=== PATIENT | male | born 1965 | race American Indian/Alaskan Native ===

== ENCOUNTER 2021-10-13 00:21 | Inpatient (IN) | payer OTHER ==
[2021-10-13] MEDS ORDERED: MORPHINE 4 MG/1 ML INJ IV ONE (02:14)
[2021-10-13 03:07] LABS: Mean Corpuscular HGB Conc 36 % (32-34); Mean Corpuscular Volume 95 fl (84-94); Platelet Count 259 K/mm3 (140-440); Red Blood Count 1.32 M/mm3 (3.65-5.03)
[2021-10-13 03:16] LABS: Albumin 3.9 g/dL (3.9-5); Calcium 8.1 mg/dL (8.4-10.2); Red Cell Distribution Width 28.7 % (13.2-15.2)
[2021-10-13 03:17] LABS: Hematocrit 12.6 % (35.5-45.6); Hemoglobin 4.6 gm/dl (11.8-15.2); INR 1.22 (0.87-1.13)
[2021-10-13 03:18] LABS: Partial Thromboplastin Time 31.9 Sec. (24.2-36.6)
--- NOTE | 2021-10-13 03:29 | XRay Report ---
Chest single view INDICATION: Chest pain IMPRESSION: Severe cardiomegaly with increased pulmonary venous prominence and trace interstitial meagan ma. No large pleural effusion. Signer Name: Harris Brown MD Signed: 10/13/2021 3:25 AM Workstation Name: [facility]
--- NOTE | 2021-10-13 03:32 | XRay Report ---
Left hip 2 views INDICATION: Left hip pain IMPRESSION: Moderately displaced intertrochanteric fracture of the left hip. Signer Name: Harris Brown MD Signed: 10/13/2021 3:28 AM Workstation Name: [employer]
--- NOTE | 2021-10-13 03:52 | Emergency Department Report ---
ED Lower Extremity HPI - General Chief Complaint: Fall Stated Complaint: GLF LF HIP PAIN Time Seen by Provider: 10/13/21 02:13 Source: EMS Mode of arrival: Stretcher Limitations: Physical Limitation - History of Present Illness Initial Comments: Patient is a 56-year-old male presenting to ED via EMS for evaluation of left hip pain after ground-level fall at home while tripping on steps. EMS notes shortening of the left leg with external rotation. He denies any other injuries. Severity: severe Improves With: nothing Worsens With: movement Context: fall - Related Data Allergies Allergy/AdvReac Type Severity Reaction Status Date / Time No Known Allergies Allergy Verified 10/13/21 02:42 ED Review of Systems ROS: Stated complaint: GLF LF HIP PAIN Other details as noted in HPI Constitutional: denies: chills, fever ENT: denies: ear pain, throat pain Respiratory: denies: cough, shortness of breath, wheezing Cardiovascular: denies: chest pain, palpitations Endocrine: no symptoms reported Gastrointestinal: denies: abdominal pain, nausea, diarrhea Musculoskeletal: arthralgia Skin: denies: rash, lesions Neurological: denies: headache, weakness, paresthesias Psychiatric: denies: anxiety, depression ED Physical Exam - General Limitations: Physical Limitation General appearance: alert, in distress (Uncomfortable due to pain) - Head Head exam: Present: atraumatic, normocephalic - Eye Eye exam: Present: normal appearance, EOMI - Neck Neck exam: Present: normal inspection, full ROM. Absent: tenderness - Respiratory Respiratory exam: Present: normal lung sounds bilaterally. Absent: respiratory distress - Cardiovascular Cardiovascular Exam: Present: regular rate, normal rhythm. Absent: systolic murmur, diastolic murmur, rubs, gallop - GI/Abdominal GI/Abdominal exam: Present: soft. Absent: distended, tenderness - Rectal Rectal exam: Present: deferred - Extremities Exam Extremities exam: Present: other (Right leg shortened and externally rotated. Palpable distal pulses) - Neurological Exam Neurological exam: Present: alert, oriented X3, CN II-XII intact - Psychiatric Psychiatric exam: Present: normal affect, normal mood - Skin Skin exam: Present: warm, dry, intact, normal color ED Course Vital Signs 10/13/21 10/13/21 00:42 00:45 Temperature 98.2 F Pulse Rate 90 Respiratory 20 Rate Blood Pressure 148/66 [Right] O2 Sat by Pulse 96 96 Oximetry ED Lower Extremity MDM - Lab Data Result diagrams: 10/13/21 02:25 10/13/21 02:25 - Medical Decision Making X-ray of hip shows acute moderately displaced left intertrochanteric fracture. Patient given IV morphine for pain. Preop labs obtained and reveal anemia with hemoglobin of 4. There are no previous labs for comparison. I suspect this is likely related to his sickle cell anemia. He is asymptomatic. We will initiate transfusion in ED and admit to hospitalist for Ortho evaluation and repair of hip fracture. Critical care attestation.: If time is entered above; I have spent that time in minutes in the direct care of this critically ill patient, excluding procedure time. ED Disposition Clinical Impression: Closed left hip fracture, Sickle cell anemia Disposition: ADMITTED INPATIENT Is pt being admited?: Yes Does the pt Need Aspirin: No Condition: Stable
[2021-10-13] MEDS ORDERED: SODIUM CHLORIDE 0.9% 500 ML 500 ML IV ONE (05:03)
[2021-10-13] MEDS ORDERED: ONDANSETRON 4 MG/2 ML INJ IV PRN (05:40)
[2021-10-13] MEDS ORDERED: MAGNESIUM HYDROXIDE (MOM) ORAL LIQD UDC PO PRN (05:40)
--- NOTE | 2021-10-13 05:49 | History and Physical Report ---
History of Present Illness Date of examination: 10/13/21 Date of admission: 10/13/2021 Chief complaint: LEFT HIP PAIN s/p fall History of present illness: 56-year-old male with known history of sickle cell disease presenting to the emergency room today for evaluation of left hip pain status post fall. Patient states he was walking on the steps when he tripped and had a ground-level fall. Denies any head injury, no headache or neck pain. Denies any fever or chills, no chest pain or shortness of breath, no cough, no nausea vomiting, no hematuria or dysuria. Work-up in the emergency room today, x-ray of the left hip shows moderately displaced intertrochanteric fracture of the left hip. Chest x-ray shows severe cardiomegaly with increased pulmonary venous prominence and trace interstitial edema. Lab reveals a hemoglobin of 4.6. Patient states his baseline hemoglobin is about 5.7. Orthopedic surgeon will be consulted for further evaluation. Past History Past Medical History: other (Sickle cell disease) Past Surgical History: No surgical history Social history: no significant social history Family history: no significant family history Medications and Allergies Allergies Allergy/AdvReac Type Severity Reaction Status Date / Time No Known Allergies Allergy Verified 10/13/21 02:42 Active Meds: Active Medications Acetaminophen (Acetaminophen 325 Mg Tab) 650 mg PO Q4H PRN PRN Reason: Pain MILD(1-3)/Fever >100.5/CHAUDHARI Magnesium Hydroxide (Magnesium Hydroxide (Mom) Oral Liqd Udc) 30 ml PO Q4H PRN PRN Reason: Constipation Morphine Sulfate (Morphine 2 Mg/1 Ml Inj) 2 mg IV Q4H PRN PRN Reason: Pain, Moderate (4-6) Morphine Sulfate (Morphine 4 Mg/1 Ml Inj) 4 mg IV Q4H PRN PRN Reason: Pain , Severe (7-10) Ondansetron HCl (Ondansetron 4 Mg/2 Ml Inj) 4 mg IV Q8H PRN PRN Reason: Nausea And Vomiting Sodium Chloride (Sodium Chloride 0.9% 10 Ml Flush Syringe) 10 ml IV BID BRITATNY Sodium Chloride (Sodium Chloride 0.9% 10 Ml Flush Syringe) 10 ml IV PRN PRN PRN Reason: LINE FLUSH Review of Systems Constitutional: no fever, no chills Ears, nose, mouth and throat: no nasal congestion, no sore throat Cardiovascular: no chest pain, no palpitations Respiratory: no cough, no shortness of breath Gastrointestinal: no abdominal pain, no nausea, no vomiting, no diarrhea Genitourinary Male: no dysuria, no hematuria, no flank pain Musculoskeletal: other (Left hip pain), no neck pain, no low back pain Integumentary: no rash, no pruritis Neurological: no headaches, no confusion Psychiatric: no anxiety, no depression Endocrine: no polyphagia, no polydipsia, no polyuria, no nocturia Exam - Constitutional Vitals: Temp Pulse Resp BP Pulse Ox 98.2 F 81 18 152/71 100 10/13/21 00:42 10/13/21 05:04 10/13/21 05:04 10/13/21 05:04 10/13/21 05:04 General appearance: Present: no acute distress, well-nourished - EENT Eyes: Present: PERRL, EOM intact, scleral icterus (Mild) ENT: hearing intact, clear oral mucosa, dentition normal - Neck Neck: Present: supple, normal ROM - Respiratory Respiratory effort: normal Respiratory: bilateral: CTA - Cardiovascular Rhythm: regular Heart Sounds: Present: S1 & S2. Absent: gallop, systolic murmur, diastolic murmur, rub, click - Extremities Extremities: no ischemia, pulses intact, pulses symmetrical, No edema, normal temperature, normal color, Full ROM Peripheral Pulses: within normal limits - Abdominal General gastrointestinal: Present: soft, non-tender, non-distended, normal bowel sounds. Absent: mass - Integumentary Integumentary: Present: clear, warm, dry, normal turgor. Absent: rash - Musculoskeletal Musculoskeletal: strength equal bilaterally, other (Tenderness over the left hip) - Psychiatric Psychiatric: appropriate mood/affect, intact judgment & insight, memory intact, cooperative - Neurologic Neurologic: CNII-XII intact, no focal deficits, moves all extremities Results - Labs CBC & Chem 7: 10/13/21 02:25 10/13/21 02:25 Labs: Abnormal lab results 10/13/21 10/13/21 10/13/21 Range/Units 02:25 02:25 02:25 WBC 12.1 H (4.5-11.0) K/mm3 RBC 1.32 L (3.65-5.03) M/mm3 Hgb 4.6 L* (11.8-15.2) gm/dl Hct 12.6 L* (35.5-45.6) % MCV 95 H (84-94) fl MCH 35 H (28-32) pg MCHC 36 H (32-34) % RDW 28.7 H (13.2-15.2) % PT 16.8 H (12.2-14.9) Sec. INR 1.22 H (0.87-1.13) Potassium 5.7 H (3.6-5.0) mmol/L Chloride 109.7 H (98-107) mmol/L Carbon Dioxide 16 L (22-30) mmol/L BUN 37 H (9-20) mg/dL Creatinine 1.6 H (0.8-1.3) mg/dL Calcium 8.1 L (8.4-10.2) mg/dL Total Bilirubin 5.20 H (0.1-1.2) mg/dL AST 56 H (5-40) units/L Assessment and Plan - Patient Problems (1) Closed left hip fracture Current Visit: Yes Status: Acute Plan to address problem: Patient will be placed on IV analgesic medication. Orthopedic surgery consulted for evaluation and recommendations. We will make patient n.p.o. (2) Sickle cell anemia Current Visit: Yes Status: Acute Plan to address problem: Patient states he has a baseline hemoglobin of 5.7. Will transfuse with packed red blood cell. We will monitor CBC. (3) DVT prophylaxis Current Visit: Yes Status: Acute Plan to address problem: Patient placed on sequential compression device. (4) Full code status Current Visit: Yes Status: Acute Plan to address problem: Patient is a full code.
[2021-10-13 06:30] LABS: Anisocytosis 3+; Basophils % (Manual) 0 % (0.0-1.8); Eosinophils % (Manual) 0 % (0.0-4.3); Total Cells Counted 100
[2021-10-13 06:31] LABS: Hypochromasia 2+; Sickle Cells 1+
[2021-10-13 06:33] LABS: Platelet Estimate Consistent w Auto
--- NOTE | 2021-10-13 11:43 | Event Note ---
Date: 10/13/21 Patient presents sickle cell disease left hip pain. Work-up in ED patient found to have moderately displaced intertrochanteric hip fracture left leg. Chest x- ray showed severe cardiomyopathy trace edema. Important note hemoglobin was 4.6 upon admission baseline 5.7. Patient admitted for surgical correction left hip. Will provide supportive care and transfusion of packed red blood cells.
[2021-10-13] MEDS ORDERED: SODIUM CHLORIDE 0.9% 500 ML 500 ML IV SCH ×2 (12:00→12:30)
--- NOTE | 2021-10-13 13:29 | Consultation ---
History of Present Illness - HPI Consult date: 10/13/21 History of present illness: ORTHOPAEDIC CONSULT Assessment: 1. Basicervical Fracture LEFT femoral neck 2. Sicle cell Anemia Recommendations : 1. Medical clearance for surgery; may need pre-op transfusions 2. Proceed within 48 hours to OR for Bipolar hemiarthroplasty LEFT hip ( will make NPO tonight /midnight for poss. SURGERY tomorrow ); 3. DISCHARGE planning /Case management Discussion: This is a 56-year-old male with sickle cell anemia who had a simple trip and fall at home last evening with the inability to bear weight on the left leg and significant pain and swelling. He was taken to the emergency room at [facility] where x-rays revealed a left femoral neck fracture, left hip. He was admitted / orthopedics was consulted. Past medical history is negative for any surgeries. He has had rare ICs according to him with regard to the sickle cell disease. Hgn on admission is below 5. Examination reveals a slender frame middle-aged male in no acute distress. The left leg is shorter than the right and there is external rotation of the lower leg. He is unable to do a straight leg raise because of pain. There is pain to palpation anteriorly over the hip joint but no pain over the il iac crest or the posterior hip/pelvis. Vascular examination is normal. X-rays: AP pelvis shows a base of the neck (basicervical) complete fracture with placement and shortening; no apparent comminution Past History Past Medical History: other (Sickle cell disease) Past Surgical History: No surgical history Social history: no significant social history Family history: no significant family history Medications and Allergies Allergies Allergy/AdvReac Type Severity Reaction Status Date / Time No Known Allergies Allergy Verified 10/13/21 02:42 Active Meds: Active Medications Acetaminophen (Acetaminophen 325 Mg Tab) 650 mg PO Q4H PRN PRN Reason: Pain MILD(1-3)/Fever >100.5/CHAUDHARI Sodium Chloride (Nacl 0.9% 500 Ml) 500 mls @ 0 mls/hr IV ONCE@1200 BRITTANY Stop: 10/13/21 20:00 Sodium Chloride (Nacl 0.9% 500 Ml) 500 mls @ 0 mls/hr IV ONCE@1230 BRITTANY Stop: 10/13/21 20:30 Magnesium Hydroxide (Magnesium Hydroxide (Mom) Oral Liqd Udc) 30 ml PO Q4H PRN PRN Reason: Constipation Morphine Sulfate (Morphine 2 Mg/1 Ml Inj) 2 mg IV Q4H PRN PRN Reason: Pain, Moderate (4-6) Morphine Sulfate (Morphine 4 Mg/1 Ml Inj) 4 mg IV Q4H PRN PRN Reason: Pain , Severe (7-10) Ondansetron HCl (Ondansetron 4 Mg/2 Ml Inj) 4 mg IV Q8H PRN PRN Reason: Nausea And Vomiting Sodium Chloride (Sodium Chloride 0.9% 10 Ml Flush Syringe) 10 ml IV BID BRITTANY Last Admin: 10/13/21 10:57 Dose: 10 ml Sodium Chloride (Sodium Chloride 0.9% 10 Ml Flush Syringe) 10 ml IV PRN PRN PRN Reason: LINE FLUSH
[2021-10-13] MEDS: MORPHINE 2 MG/1 ML INJ IV PRN (18:08)
[2021-10-13] MEDS ORDERED: diphenhydrAMINE 50 MG/ML VIAL IV NR (20:44)
[2021-10-13] MEDS: ACETAMINOPHEN 325 MG TAB PO PRN (21:03)
[2021-10-13] MEDS ORDERED: SODIUM CHLORIDE 0.9% 1000 ML 1,000 ML IV ONE (23:11)
[2021-10-14] MEDS ORDERED: SODIUM CHLORIDE 0.9% 500 ML 500 ML ONE (03:32)
[2021-10-14 07:27] LABS: Hematocrit 20.4 % (35.5-45.6); Hemoglobin 7.4 gm/dl (11.8-15.2); Mean Corpuscular HGB Conc 36 % (32-34); Mean Corpuscular Volume 91 fl (84-94); Platelet Count 219 K/mm3 (140-440); Red Blood Count 2.24 M/mm3 (3.65-5.03); Red Cell Distribution Width 21.9 % (13.2-15.2)
[2021-10-14 07:39] LABS: BUN/Creatinine Ratio 23; Blood Urea Nitrogen 27 mg/dL (9-20); Hemolysis Index 3
[2021-10-14] MEDS ORDERED: ceFAZolin/NS 1 GM/50 ML 1 GM/50 ML BAG IV NR (11:28)
[2021-10-14] MEDS ORDERED: LACTATED RINGERS 1,000 ML IV SCH (11:30)
[2021-10-14] MEDS ORDERED: ceFAZolin/Water 2 GM/20 ML 2 GM/20 ML SYRINGE IV NR (12:00)
--- NOTE | 2021-10-14 12:12 | Anesthesia Day of Surgery ---
Anesthesia Day of Surgery - Day of Surgery Patient Examined: Yes Patient H&P Reviewed: Yes Patient is NPO: Yes
--- NOTE | 2021-10-14 12:14 | Anesthesia Consultation ---
Anesthesia Consult and Med Hx Date of service: 10/14/21 - Airway Anesthetic Teeth Evaluation: Good ROM Head & Neck: Adequate Mental/Hyoid Distance: Adequate Mallampati Class: Class II Intubation Access Assessment: Good - Pre-Operative Health Status ASA Pre-Surgery Classification: ASA3 Proposed Anesthetic Plan: General - Pulmonary Hx Smoking: No Hx Sleep Apnea: No - Gastrointestinal Hx Gastroesophageal Reflux Disease: No - Hematic Hx Anemia: Yes Hx Sickle Cell Disease: Yes (Normal hgb 5.7) - Other Systems Hx Obesity: No
[2021-10-14] MEDS ORDERED: NEOMY 40 MG/POLYMYXIN B 200,000 UNITS/ML (GU) AMPULE IR ONE ×2 (12:42→15:07)
[2021-10-14] MEDS ORDERED: SODIUM CHLORIDE 0.9% IRRIG SOLN 2000 ML IR ONE (12:43)
--- NOTE | 2021-10-14 13:13 | Operative Report ---
Operative Report Operative Report: Preop diagnosis : Femoral Neck (basicervical) Fracture , LEFT hip Postop diagnosis: Same Procedure: Bipolar Hip Replacement, LEFT hip Surgeon: Kirill Dee MD radiology physician assistant: Dr. Azar Anesthesia: General with ETT Details of OPERATIVE TECHNIQUE : After being appropriately prepared and cleared for surgery, the patient was brought to the operating room and the correct site was identified. General anesthesia was then administered. The patient was then placed in the decubitus position with the left hip up and all pressure points were padded. An axillary roll was placed under the appropriate side. The hip was then prepped and draped in the usual sterile fashion utilizing ChloraPrep solution as per total hip protocol. Space suits were worn by the surgical team. Antibiotic was administered IV prior to the start of the case in the form of Ancef 1 g IV. Timeout was called by the circulating nurse and once again the correct site was identified The hip was opened through a straight anterolateral approach. Dissection was carried down through the fibrofatty layer; bleeders were clamped and cauterized with the Bovie. Tensor fascia was split the length of the incision and the Charnley retractor was carefully placed. The leg was externally rotated and the gluteus medius and minimus were removed from the trochanter, leaving a cuff of tissue for later repair. Capsulectomy was performed revealing fracture hematoma and debris. The Femoral head was then removed and sized on the back table. The Fracture was at the base of the neck and attention was then turned toward the proximal femur. A box osteotome was utilized to create a lateral starting position. A canal finder was placed down the shaft of the proximal femur and sequential handheld reamers were utilized to prepare the diaphysis up to a #8 size. A box osteotome was utilized to create a lateral starting position. The proximal femur was then prepared with broaches sequentially up to a size #9. Trial reduction was then carried out with the #[address]. The patient required a +0 neck length and the bipolar 50 mm outside diameter head was then assembled and the hip was reduced. Excellent stability was noted with the trial reduction. The patient was stable with full extension and external rotation as well as 90 degrees of flexion and internal rotation. The leg lengths were also normalized. Shuck test was negative. The proximal femur was then irrigated copiously with antibiotic solution. A Size #9 press-fit stem made by [employer] was impacted into place. Excellent rotational stability was achieved. +0 neck length with bipolar head (50mm/26mm) was attached and the hip was once again reduced. Again excellent stability was confirmed in all planes. The wound was then irrigated thoroughly with antibiotic solution. The abductors were repaired with 0 Vicryl suture. The tensor fascia was then reapproximated with a 0 Vicryl running locking suture .The subcutaneous layer was closed with 2-0 Vicryl suture and the skin was reapproximated with meredith. A sterile compressive dressing was applied with an occlusive dressing on top. The patient was then awakened and taken to recovery room in excellent condition. Estimated blood loss: 600 cc Replacement: (See anesthesia record) 1700 cc crystalloid Drains : None Complications: None
--- NOTE | 2021-10-14 13:32 | Progress Note ---
Assessment and Plan Assessment and plan: This is a 56-year-old male with sickle cell anemia who had a simple trip and fall at home last evening with the inability to bear weight on the left leg and significant pain and swelling. He was taken to the emergency room at [facility] where x-rays revealed a left femoral neck fracture, left hip. He was admitted / orthopedics was consulted. Basicervical Fracture LEFT femoral neck Sickle cell anemia. 10/14/2021. Patient is s/p bipolar hip replacement of left hip. Continue pain control. Physical therapy evaluation. History Interval history: No new issues overnight Hospitalist Physical - Constitutional Vitals: Temp Pulse Resp BP Pulse Ox 99.6 F 88 21 154/77 95 10/14/21 08:08 10/14/21 08:08 10/14/21 08:08 10/14/21 08:08 10/14/21 08:08 General appearance: Present: no acute distress, well-nourished - EENT Eyes: Present: PERRL, EOM intact ENT: hearing intact, clear oral mucosa, dentition normal - Neck Neck: Present: supple, normal ROM - Respiratory Respiratory effort: normal Respiratory: bilateral: CTA - Cardiovascular Rhythm: regular Heart Sounds: Present: S1 & S2. Absent: gallop, rub - Extremities Extremities: no ischemia, No edema, Full ROM - Abdominal General gastrointestinal: soft, non-tender, non-distended, normal bowel sounds - Integumentary Integumentary: Present: clear, warm, dry - Neurologic Neurologic: CNII-XII intact, moves all extremities Results - Labs CBC & Chem 7: 10/14/21 07:13 10/14/21 07:13 Labs: Laboratory Last Values WBC 15.3 K/mm3 (4.5-11.0) H 10/14/21 07:13 RBC 2.24 M/mm3 (3.65-5.03) L 10/14/21 07:13 Hgb 7.4 gm/dl (11.8-15.2) L 10/14/21 07:13 Hct 20.4 % (35.5-45.6) L D 10/14/21 07:13 MCV 91 fl (84-94) 10/14/21 07:13 MCH 33 pg (28-32) H 10/14/21 07:13 MCHC 36 % (32-34) H 10/14/21 07:13 RDW 21.9 % (13.2-15.2) H 10/14/21 07:13 Plt Count 219 K/mm3 (140-440) 10/14/21 07:13 Add Manual Diff Complete 10/13/21 02:25 Total Counted 100 10/13/21 02:25 Seg Neuts % (Manual) 76.0 % (40.0-70.0) H 10/13/21 02:25 Band Neutrophils % 0 % 10/13/21 02:25 Lymphocytes % (Manual) 22.0 % (13.4-35.0) 10/13/21 02:25 Reactive Lymphs % (Man) 0 % 10/13/21 02:25 Monocytes % (Manual) 2.0 % (0.0-7.3) 10/13/21 02:25 Eosinophils % (Manual) 0 % (0.0-4.3) 10/13/21 02:25 Basophils % (Manual) 0 % (0.0-1.8) 10/13/21 02:25 Metamyelocytes % 0 % 10/13/21 02:25 Myelocytes % 0 % 10/13/21 02:25 Promyelocytes % 0 % 10/13/21 02:25 Blast Cells % 0 % 10/13/21 02:25 Nucleated RBC % 6.0 % (0.0-0.9) H 10/13/21 02:25 Seg Neutrophils # Man 9.2 K/mm3 (1.8-7.7) H 10/13/21 02:25 Band Neutrophils # 0.0 K/mm3 10/13/21 02:25 Lymphocytes # (Manual) 2.7 K/mm3 (1.2-5.4) 10/13/21 02:25 Abs React Lymphs (Man) 0.0 K/mm3 10/13/21 02:25 Monocytes # (Manual) 0.2 K/mm3 (0.0-0.8) 10/13/21 02:25 Eosinophils # (Manual) 0.0 K/mm3 (0.0-0.4) 10/13/21 02:25 Basophils # (Manual) 0.0 K/mm3 (0.0-0.1) 10/13/21 02:25 Metamyelocytes # 0.0 K/mm3 10/13/21 02:25 Myelocytes # 0.0 K/mm3 10/13/21 02:25 Promyelocytes # 0.0 K/mm3 10/13/21 02:25 Blast Cells # 0.0 K/mm3 10/13/21 02:25 WBC Morphology Not Reportable 10/13/21 02:25 Hypersegmented Neuts Not Reportable 10/13/21 02:25 Hyposegmented Neuts Not Reportable 10/13/21 02:25 Hypogranular Neuts Not Reportable 10/13/21 02:25 Smudge Cells Not Reportable 10/13/21 02:25 Toxic Granulation Not Reportable 10/13/21 02:25 Toxic Vacuolation Not Reportable 10/13/21 02:25 Dohle Bodies Not Reportable 10/13/21 02:25 Pelger-Huet Anomaly Not Reportable 10/13/21 02:25 Osorio Rods Not Reportable 10/13/21 02:25 Platelet Estimate Consistent w auto 10/13/21 02:25 Clumped Platelets Not Reportable 10/13/21 02:25 Plt Clumps, EDTA Not Reportable 10/13/21 02:25 Large Platelets Not Reportable 10/13/21 02:25 Giant Platelets Not Reportable 10/13/21 02:25 Platelet Satelliting Not Reportable 10/13/21 02:25 Plt Morphology Comment Not Reportable 10/13/21 02:25 RBC Morphology Not Reportable 10/13/21 02:25 Dimorphic RBCs Not Reportable 10/13/21 02:25 Polychromasia Not Reportable 10/13/21 02:25 Hypochromasia 2+ 10/13/21 02:25 Poikilocytosis Not Reportable 10/13/21 02:25 Anisocytosis 3+ 10/13/21 02:25 Microcytosis Few 10/13/21 02:25 Macrocytosis Not Reportable 10/13/21 02:25 Spherocytes Not Reportable 10/13/21 02:25 Pappenheimer Bodies Not Reportable 10/13/21 02:25 Sickle Cells 1+ 10/13/21 02:25 Target Cells Not Reportable 10/13/21 02:25 Tear Drop Cells Not Reportable 10/13/21 02:25 Ovalocytes Not Reportable 10/13/21 02:25 Helmet Cells Not Reportable 10/13/21 02:25 Harmon-[place] Bodies Not Reportable 10/13/21 02:25 [place] Rings Not Reportable 10/13/21 02:25 [place] Cells Not Reportable 10/13/21 02:25 Bite Cells Not Reportable 10/13/21 02:25 Crenated Cell Not Reportable 10/13/21 02:25 Elliptocytes Not Reportable 10/13/21 02:25 Acanthocytes (Spur) Not Reportable 10/13/21 02:25 Rouleaux Not Reportable 10/13/21 02:25 Hemoglobin C Crystals Not Reportable 10/13/21 02:25 Schistocytes Not Reportable 10/13/21 02:25 Malaria parasites Not Reportable 10/13/21 02:25 Landon Bodies Not Reportable 10/13/21 02:25 Hem Pathologist Commnt No 10/13/21 02:25 PT 16.8 Sec. (12.2-14.9) H 10/13/21 02:25 INR 1.22 (0.87-1.13) H 10/13/21 02:25 APTT 31.9 Sec. (24.2-36.6) 10/13/21 02:25 Sodium 140 mmol/L (137-145) 10/14/21 07:13 Potassium 5.5 mmol/L (3.6-5.0) H 10/14/21 07:13 Chloride 112.4 mmol/L (98-107) H 10/14/21 07:13 Carbon Dioxide 17 mmol/L (22-30) L 10/14/21 07:13 Anion Gap 16 mmol/L 10/14/21 07:13 BUN 27 mg/dL (9-20) H 10/14/21 07:13 Creatinine 1.2 mg/dL (0.8-1.3) 10/14/21 07:13 Estimated GFR > 60 ml/min 10/14/21 07:13 BUN/Creatinine Ratio 23 % 10/14/21 07:13 Glucose 117 mg/dL (75-100) H 10/14/21 07:13 Calcium 8.0 mg/dL (8.4-10.2) L 10/14/21 07:13 Total Bilirubin 5.20 mg/dL (0.1-1.2) H 10/13/21 02:25 AST 56 units/L (5-40) H 10/13/21 02:25 ALT 18 units/L (7-56) 10/13/21 02:25 Alkaline Phosphatase 111 units/L (35-129) 10/13/21 02:25 Total Protein 6.3 g/dL (6.3-8.2) 10/13/21 02:25 Albumin 3.9 g/dL (3.9-5) 10/13/21 02:25 Albumin/Globulin Ratio 1.6 % 10/13/21 02:25 Blood Type B POSITIVE 10/13/21 02:25 Antibody Screen Negative 10/13/21 02:25 Crossmatch See Detail 10/13/21 02:25 German/IV: Voiding Method Urinal Active Medications - Current Medications Current Medications: Generic Name Dose Route Start Last Admin Trade Name Freq PRN Reason Stop Dose Admin Acetaminophen 650 mg 10/13/21 05:40 10/13/21 21:03 Acetaminophen 325 Mg Tab PO 650 mg Q4H PRN Administration Pain MILD(1-3)/Fever >100.5/CAHUDHARI Cefazolin Sodium 2 gm in 20 mls @ 80 mls/hr 10/14/21 12:00 Ancef/Sterile Water 2 Gm/20 Ml IV 10/14/21 23:00 PREOP NR Lactated Ringer's 1,000 mls @ 42 mls/hr 10/14/21 11:30 Lactated Ringers IV 10/15/21 11:29 PREOP BRITTANY Magnesium Hydroxide 30 ml 10/13/21 05:40 Magnesium Hydroxide (Mom) Oral Liqd Udc PO Q4H PRN Constipation Morphine Sulfate 2 mg 10/13/21 05:40 10/13/21 18:08 Morphine 2 Mg/1 Ml Inj IV 2 mg Q4H PRN Administration Pain, Moderate (4-6) Morphine Sulfate 4 mg 10/13/21 05:40 Morphine 4 Mg/1 Ml Inj IV Q4H PRN Pain , Severe (7-10) Ondansetron HCl 4 mg 10/13/21 05:40 Ondansetron 4 Mg/2 Ml Inj IV Q8H PRN Nausea And Vomiting Sodium Chloride 10 ml 10/13/21 10:00 10/13/21 10:57 Sodium Chloride 0.9% 10 Ml Flush Syringe IV 10 ml BID BRITTANY Administration Sodium Chloride 10 ml 10/13/21 05:40 Sodium Chloride 0.9% 10 Ml Flush Syringe IV PRN PRN LINE FLUSH Nutrition/Malnutrition Assess - Dietary Evaluation Nutrition/Malnutrition Findings: Nutrition Notes Start: 10/13/21 14:23 Freq: Status: Active Protocol: Document 10/13/21 14:23 JOSE L (Rec: 10/13/21 14:59 JOSE L [id number]) Nutrition Notes Need for Assessment generated from: MD Order Initial or Follow up Brief Note Other Pertinent Diagnosis L-Hip Closed Fracture s/p Fall , Sickle Cell Anemia. Current Diet [place] until midnight on 23:59. NPO (from 10/14 00: 01). Height 5 ft 6 in Weight 53 kg [place] Body Weight (kg) 64.54 BMI 18.8 Intake Prior to Admission Good Weight change and time frame Pt denies having loss body weight [employer]. Weight Status Appropriate Subjective/Other Information RD consult for dietary supplementation assessment. Pt can be fed now, but will be NPO after midnight, there is no specified diet order. No reports available on Pt's PO intake at the time, will assess at F/U. Pt presents a L-Hip closed fracture, according History & Physical notes. Pt is on Nasal Cannula, O2 saturation @ 96%, according to Physical Assessment History notes. Procedure: Bipolar Hemiarthroplasty on L-Hip, planned for 10/14, according to History & Physical notes. Dietary supplementation is not required at the time, but will be assessed after PO intake of meals is resumed and assessed. Percent of energy/protein needs met: [place] until midnight on 23:59. NPO (from 10/14 00: 01). Is patient on ventilator? No Is Patient Ambulatory and/or Out of Bed No REE-([facility]-confined to bed) 1568.040 Calculation Used for Recommendations [facility] Additional Notes Protein: 1.5-2 g/Kg IBW; 98- 130 g/day. Fluids: 1 ml/Kcal, or as per MD. Nutrition Intervention Change Diet Order: When pertinent, resume Regular Diet, as tolerated. Follow-Up By: 10/20/21 Additional Comments When pertinent, start monitoring food tolerance, %PO intake of meals, and BM.
[2021-10-14] MEDS ORDERED: SODIUM CHLORIDE 0.9% 500 ML 500 ML IV NR (14:16)
[2021-10-14] MEDS ORDERED: propofoL 200 MG/20 ML VIAL IV ONE (14:18)
[2021-10-14] MEDS ORDERED: MIDAZOLAM 2 MG/2 ML INJ ONE (14:19)
[2021-10-14] MEDS ORDERED: fentaNYL 100 MCG/2 ML INJ ONE (14:19)
[2021-10-14] MEDS ORDERED: LIDOCAINE MPF (2%) 20 MG/1 ML VIAL 5 ML ONE (14:37)
[2021-10-14] MEDS ORDERED: ROCURONIUM 50 MG/5 ML INJ IV ONE (14:37)
[2021-10-14 15:05] LABS: Band Neutrophils # (Manual) 0.2 K/mm3; Basophils % (Manual) 0 % (0.0-1.8); Eosinophils % (Manual) 0 % (0.0-4.3); Total Cells Counted 100
[2021-10-14 15:09] LABS: Burr Cells Few; Hypochromasia 2+; Ovalocytes Few; Schistocytes Rare; Sickle Cells 1+; Spherocytes 1+; Target Cells Few
[2021-10-14 15:12] LABS: Anisocytosis 2+; Platelet Estimate Consistent w Auto
[2021-10-14] MEDS ORDERED: HYDROmorphone 1 MG/1 ML INJ ONE (15:17)
[2021-10-14] MEDS ORDERED: NEOSTIGMINE 10MG/10 ML INJ MDV ONE (16:06)
[2021-10-14] MEDS ORDERED: GLYCOPYRROLATE 0.4 MG/2 ML INJ ONE (16:07)
[2021-10-14] MEDS ORDERED: SODIUM CHLORIDE 0.9% 1000 ML 1,000 ML ONE ×2 (16:20→17:31)
[2021-10-14 17:18] LABS: Hemoglobin 6.3 gm/dl (11.8-15.2)
[2021-10-14 17:28] LABS: Hematocrit 18.1 % (35.5-45.6)
--- NOTE | 2021-10-14 18:06 | Post Anesthesia Evaluation ---
- Post Anesthesia Evaluation Patient Participated: Yes Airway Patent: Yes Stable Respiratory Function: Yes Nausea/Vomiting: No Temp > 96.8F: Yes Anesthesia Complications: No Block Receding Appropriately: Not Applicable Patient on Ventilator: No
[2021-10-14] MEDS: MORPHINE 4 MG/1 ML INJ IV PRN (19:30)
[2021-10-14] MEDS: APIXABAN 2.5 MG TAB PO SCH (22:57)
[2021-10-14] MEDS: ACETAMINOPHEN 325 MG TAB PO PRN (23:39)
[2021-10-15 06:24] LABS: Hematocrit 24.7 % (35.5-45.6); Hemoglobin 8.4 gm/dl (11.8-15.2)
[2021-10-15 06:33] LABS: INR 1.31 (0.87-1.13)
[2021-10-15 06:34] LABS: Partial Thromboplastin Time 46.8 Sec. (24.2-36.6)
[2021-10-15] MEDS: MORPHINE 2 MG/1 ML INJ IV PRN ×2 (08:52→13:03)
[2021-10-15] MEDS: APIXABAN 2.5 MG TAB PO SCH ×3 (08:52→21:42)
--- NOTE | 2021-10-15 11:41 | Progress Note ---
Subjective Interval history: PROGRESS NOTE S: POD #1` ; patient lying in bed alert , no acute distress. No complaints except for postoperative pain; PT has not seen the patient ! O: Leg is equal length with the opposite lower extremity; mild swelling proximal femur left hip. Dressing is intact with no drainage. Able to do straight leg raise with assistance. Neurovascularly intact A: Satisfactory postop course, postop day #1 S/P Bipolar hip replacement , LEFT hip P: 1. postop physical therapy should begin today with protected weightbearing at all times and partial weightbearing with a walker; safety precautions. Gait training as well as transfers from bed to chair. DVT prophylaxis with Eliquis 2.5 mg q. twice daily, as directed ,to be continued for 5 weeks post-op. Case management for possible SNU placement. Objective Vital signs: Vital Signs - 12hr 10/14/21 10/15/21 10/15/21 23:42 00:48 01:27 Temperature 98.0 F 99.0 F 99.5 F Pulse Rate 101 H 113 H 109 H Respiratory 18 18 18 Rate Blood Pressure 158/68 165/84 158/85 O2 Sat by Pulse 97 96 Oximetry 10/15/21 10/15/21 10/15/21 02:00 02:22 02:27 Temperature 99.5 F 98.6 F Pulse Rate 107 H 103 H 100 H Respiratory 18 18 Rate Blood Pressure 163/79 153/86 O2 Sat by Pulse 96 98 98 Oximetry 10/15/21 04:00 Temperature Pulse Rate Respiratory Rate Blood Pressure O2 Sat by Pulse 98 Oximetry - Labs CBC & BMP: 10/15/21 05:18 10/15/21 05:18 Labs: Abnormal lab results 10/13/21 10/14/21 10/14/21 Range/Units 02:25 07:13 Unknown Hgb 6.3 L (11.8-15.2) gm/dl Hct 18.1 L* (35.5-45.6) % Seg Neuts % (Manual) 91.0 H (40.0-70.0) % Lymphocytes % (Manual) 1.0 L (13.4-35.0) % Nucleated RBC % 9.0 H (0.0-0.9) % Seg Neutrophils # Man 13.9 H (1.8-7.7) K/mm3 Lymphocytes # (Manual) 0.2 L (1.2-5.4) K/mm3 Monocytes # (Manual) 1.1 H (0.0-0.8) K/mm3 PT (12.2-14.9) Sec. INR (0.87-1.13) APTT (24.2-36.6) Sec. Creatinine (0.8-1.3) mg/dL Crossmatch See Detail 10/15/21 10/15/21 10/15/21 Range/Units 05:18 05:18 05:18 Hgb 8.4 L (11.8-15.2) gm/dl Hct 24.7 L D (35.5-45.6) % Seg Neuts % (Manual) (40.0-70.0) % Lymphocytes % (Manual) (13.4-35.0) % Nucleated RBC % (0.0-0.9) % Seg Neutrophils # Man (1.8-7.7) K/mm3 Lymphocytes # (Manual) (1.2-5.4) K/mm3 Monocytes # (Manual) (0.0-0.8) K/mm3 PT 17.8 H (12.2-14.9) Sec. INR 1.31 H (0.87-1.13) APTT 46.8 H (24.2-36.6) Sec. Creatinine 1.8 H (0.8-1.3) mg/dL Crossmatch
--- NOTE | 2021-10-15 12:02 | Progress Note ---
Assessment and Plan Assessment and plan: This is a 56-year-old male with sickle cell anemia who had a simple trip and fall at home last evening with the inability to bear weight on the left leg and significant pain and swelling. He was taken to the emergency room at [facility] where x-rays revealed a left femoral neck fracture, left hip. He was admitted / orthopedics was consulted. Basicervical Fracture LEFT femoral neck Sickle cell anemia. 10/14/2021. Patient is s/p bipolar hip replacement of left hip. Continue pain control. Physical therapy evaluation. 10/15/2021. Orthopedics reports postop physical therapy should begin today with protected weightbearing at all times and partial weightbearing with a walker; safety precautions. Gait training as well as transfers from bed to chair. DVT prophylaxis with Eliquis 2.5 mg q. twice daily, as directed ,to be continued for 5 weeks post-op. Case management for possible SNU placement. Continue pain control History Interval history: No new issues overnight Hospitalist Physical - Constitutional Vitals: Temp Pulse Resp BP Pulse Ox 98.6 F 100 H 18 153/86 98 10/15/21 02:27 10/15/21 02:27 10/15/21 02:27 10/15/21 02:27 10/15/21 04:00 General appearance: Present: no acute distress, well-nourished - EENT Eyes: Present: PERRL, EOM intact ENT: hearing intact, clear oral mucosa, dentition normal - Neck Neck: Present: supple, normal ROM - Respiratory Respiratory effort: normal Respiratory: bilateral: CTA - Cardiovascular Rhythm: regular Heart Sounds: Present: S1 & S2. Absent: gallop, rub - Extremities Extremities: no ischemia, No edema, Full ROM - Abdominal General gastrointestinal: soft, non-tender, non-distended, normal bowel sounds - Integumentary Integumentary: Present: clear, warm, dry - Neurologic Neurologic: CNII-XII intact, moves all extremities Results - Labs CBC & Chem 7: 10/15/21 05:18 10/15/21 05:18 Labs: Laboratory Last Values WBC 15.3 K/mm3 (4.5-11.0) H 10/14/21 07:13 RBC 2.24 M/mm3 (3.65-5.03) L 10/14/21 07:13 Hgb 8.4 gm/dl (11.8-15.2) L 10/15/21 05:18 Hct 24.7 % (35.5-45.6) L D 10/15/21 05:18 MCV 91 fl (84-94) 10/14/21 07:13 MCH 33 pg (28-32) H 10/14/21 07:13 MCHC 36 % (32-34) H 10/14/21 07:13 RDW 21.9 % (13.2-15.2) H 10/14/21 07:13 Plt Count 219 K/mm3 (140-440) 10/14/21 07:13 Add Manual Diff Complete 10/14/21 07:13 Total Counted 100 10/14/21 07:13 Seg Neuts % (Manual) 91.0 % (40.0-70.0) H 10/14/21 07:13 Band Neutrophils % 1.0 % 10/14/21 07:13 Lymphocytes % (Manual) 1.0 % (13.4-35.0) L 10/14/21 07:13 Reactive Lymphs % (Man) 0 % 10/14/21 07:13 Monocytes % (Manual) 7.0 % (0.0-7.3) 10/14/21 07:13 Eosinophils % (Manual) 0 % (0.0-4.3) 10/14/21 07:13 Basophils % (Manual) 0 % (0.0-1.8) 10/14/21 07:13 Metamyelocytes % 0 % 10/14/21 07:13 Myelocytes % 0 % 10/14/21 07:13 Promyelocytes % 0 % 10/14/21 07:13 Blast Cells % 0 % 10/14/21 07:13 Nucleated RBC % 9.0 % (0.0-0.9) H 10/14/21 07:13 Seg Neutrophils # Man 13.9 K/mm3 (1.8-7.7) H 10/14/21 07:13 Band Neutrophils # 0.2 K/mm3 10/14/21 07:13 Lymphocytes # (Manual) 0.2 K/mm3 (1.2-5.4) L 10/14/21 07:13 Abs React Lymphs (Man) 0.0 K/mm3 10/14/21 07:13 Monocytes # (Manual) 1.1 K/mm3 (0.0-0.8) H 10/14/21 07:13 Eosinophils # (Manual) 0.0 K/mm3 (0.0-0.4) 10/14/21 07:13 Basophils # (Manual) 0.0 K/mm3 (0.0-0.1) 10/14/21 07:13 Metamyelocytes # 0.0 K/mm3 10/14/21 07:13 Myelocytes # 0.0 K/mm3 10/14/21 07:13 Promyelocytes # 0.0 K/mm3 10/14/21 07:13 Blast Cells # 0.0 K/mm3 10/14/21 07:13 WBC Morphology Not Reportable 10/14/21 07:13 Hypersegmented Neuts Not Reportable 10/14/21 07:13 Hyposegmented Neuts Not Reportable 10/14/21 07:13 Hypogranular Neuts Not Reportable 10/14/21 07:13 Smudge Cells Not Reportable 10/14/21 07:13 Toxic Granulation Not Reportable 10/14/21 07:13 Toxic Vacuolation Not Reportable 10/14/21 07:13 Dohle Bodies Not Reportable 10/14/21 07:13 Pelger-Huet Anomaly Not Reportable 10/14/21 07:13 Osorio Rods Not Reportable 10/14/21 07:13 Platelet Estimate Consistent w auto 10/14/21 07:13 Clumped Platelets Not Reportable 10/14/21 07:13 Plt Clumps, EDTA Not Reportable 10/14/21 07:13 Large Platelets Not Reportable 10/14/21 07:13 Giant Platelets Not Reportable 10/14/21 07:13 Platelet Satelliting Not Reportable 10/14/21 07:13 Plt Morphology Comment Not Reportable 10/14/21 07:13 RBC Morphology Not Reportable 10/14/21 07:13 Dimorphic RBCs Not Reportable 10/14/21 07:13 Polychromasia 1+ 10/14/21 07:13 Hypochromasia 2+ 10/14/21 07:13 Poikilocytosis Not Reportable 10/14/21 07:13 Anisocytosis 2+ 10/14/21 07:13 Microcytosis Not Reportable 10/14/21 07:13 Macrocytosis Not Reportable 10/14/21 07:13 Spherocytes 1+ 10/14/21 07:13 Pappenheimer Bodies Not Reportable 10/14/21 07:13 Sickle Cells 1+ 10/14/21 07:13 Target Cells Few 10/14/21 07:13 Tear Drop Cells Not Reportable 10/14/21 07:13 Ovalocytes Few 10/14/21 07:13 Helmet Cells Not Reportable 10/14/21 07:13 Harm[place] Bodies Not Reportable 10/14/21 07:13 [place] Rings Not Reportable 10/14/21 07:13 [place] Cells Few 10/14/21 07:13 Bite Cells Not Reportable 10/14/21 07:13 Crenated Cell Not Reportable 10/14/21 07:13 Elliptocytes Not Reportable 10/14/21 07:13 Acanthocytes (Spur) Few 10/14/21 07:13 Rouleaux Not Reportable 10/14/21 07:13 Hemoglobin C Crystals Not Reportable 10/14/21 07:13 Schistocytes Rare 10/14/21 07:13 Malaria parasites Not Reportable 10/14/21 07:13 [place]andon Bodies Not Reportable 10/14/21 07:13 Hem Pathologist Commnt No 10/14/21 07:13 PT 17.8 Sec. (12.2-14.9) H 10/15/21 05:18 INR 1.31 (0.87-1.13) H 10/15/21 05:18 APTT 46.8 Sec. (24.2-36.6) H 10/15/21 05:18 Sodium 140 mmol/L (137-145) 10/14/21 07:13 Potassium 5.5 mmol/L (3.6-5.0) H 10/14/21 07:13 Chloride 112.4 mmol/L (98-107) H 10/14/21 07:13 Carbon Dioxide 17 mmol/L (22-30) L 10/14/21 07:13 Anion Gap 16 mmol/L 10/14/21 07:13 BUN 27 mg/dL (9-20) H 10/14/21 07:13 Creatinine 1.8 mg/dL (0.8-1.3) H 10/15/21 05:18 Estimated GFR 47 ml/min 10/15/21 05:18 BUN/Creatinine Ratio 23 % 10/14/21 07:13 Glucose 117 mg/dL (75-100) H 10/14/21 07:13 Calcium 8.0 mg/dL (8.4-10.2) L 10/14/21 07:13 Total Bilirubin 5.20 mg/dL (0.1-1.2) H 10/13/21 02:25 AST 56 units/L (5-40) H 10/13/21 02:25 ALT 18 units/L (7-56) 10/13/21 02:25 Alkaline Phosphatase 111 units/L (35-129) 10/13/21 02:25 Total Protein 6.3 g/dL (6.3-8.2) 10/13/21 02:25 Albumin 3.9 g/dL (3.9-5) 10/13/21 02:25 Albumin/Globulin Ratio 1.6 % 10/13/21 02:25 Blood Type B POSITIVE 10/13/21 02:25 Antibody Screen Negative 10/13/21 02:25 Crossmatch See Detail 10/13/21 02:25 German/IV: Voiding Method Urinal Active Medications - Current Medications Current Medications: Generic Name Dose Route Start Last Admin Trade Name Freq PRN Reason Stop Dose Admin Acetaminophen 650 mg 10/13/21 05:40 10/14/21 23:39 Acetaminophen 325 Mg Tab PO 650 mg Q4H PRN Administration Pain MILD(1-3)/Fever >100.5/CHAUDHARI Apixaban 2.5 mg 10/14/21 22:00 10/15/21 08:52 Apixaban 2.5 Mg Tab PO 2.5 mg Q12HR BRITTANY Administration Protocol Cefazolin Sodium 2 gm/ Sodium 100 mls @ 200 mls/hr 10/14/21 16:45 10/15/21 09:17 Chloride IV 10/16/21 16:44 200 mls/hr Q8H BRITTANY Administration Protocol Magnesium Hydroxide 30 ml 10/13/21 05:40 Magnesium Hydroxide (Mom) Oral Liqd Udc PO Q4H PRN Constipation Morphine Sulfate 2 mg 10/13/21 05:40 10/15/21 08:52 Morphine 2 Mg/1 Ml Inj IV 2 mg Q4H PRN Administration Pain, Moderate (4-6) Morphine Sulfate 4 mg 10/13/21 05:40 10/14/21 19:30 Morphine 4 Mg/1 Ml Inj IV 4 mg Q4H PRN Administration Pain , Severe (7-10) Ondansetron HCl 4 mg 10/13/21 05:40 Ondansetron 4 Mg/2 Ml Inj IV Q8H PRN Nausea And Vomiting Sodium Chloride 10 ml 10/13/21 10:00 10/14/21 23:01 Sodium Chloride 0.9% 10 Ml Flush Syringe IV 10 ml BID BRITTANY Administration Sodium Chloride 10 ml 10/13/21 05:40 Sodium Chloride 0.9% 10 Ml Flush Syringe IV PRN PRN LINE FLUSH Nutrition/Malnutrition Assess - Dietary Evaluation Nutrition/Malnutrition Findings: Nutrition Notes Start: 10/13/21 14:23 Freq: Status: Active Protocol: Document 10/13/21 14:23 JOSE L (Rec: 10/13/21 14:59 JOSE L [id number]) Nutrition Notes Need for Assessment generated from: MD Order Initial or Follow up Brief Note Other Pertinent Diagnosis L-Hip Closed Fracture s/p Fall , Sickle Cell Anemia. Current Diet [place] until midnight on 23:59. NPO (from 10/14 00: 01). Height 5 ft 6 in Weight 53 kg [place] Body Weight (kg) 64.54 BMI 18.8 Intake Prior to Admission Good Weight change and time frame Pt denies having loss body weight [employer]. Weight Status Appropriate Subjective/Other Information RD consult for dietary supplementation assessment. Pt can be fed now, but will be NPO after midnight, there is no specified diet order. No reports available on Pt's PO intake at the time, will assess at F/U. Pt presents a L-Hip closed fracture, according History & Physical notes. Pt is on Nasal Cannula, O2 saturation @ 96%, according to Physical Assessment History notes. Procedure: Bipolar Hemiarthroplasty on L-Hip, planned for 10/14, according to History & Physical notes. Dietary supplementation is not required at the time, but will be assessed after PO intake of meals is resumed and assessed. Percent of energy/protein needs met: [place] until midnight on 23:59. NPO (from 10/14 00: 01). Is patient on ventilator? No Is Patient Ambulatory and/or Out of Bed No REE-([place]-confined to bed) 1568.040 Calculation Used for Recommendations [facility] Additional Notes Protein: 1.5-2 g/Kg IBW; 98- 130 g/day. Fluids: 1 ml/Kcal, or as per MD. Nutrition Intervention Change Diet Order: When pertinent, resume Regular Diet, as tolerated. Follow-Up By: 10/20/21 Additional Comments When pertinent, start monitoring food tolerance, %PO intake of meals, and BM.
[2021-10-16] MEDS: MORPHINE 2 MG/1 ML INJ IV PRN ×2 (01:20→11:09)
[2021-10-16 06:06] LABS: Hematocrit 21.6 % (35.5-45.6); Hemoglobin 7.2 gm/dl (11.8-15.2); Mean Corpuscular HGB Conc 33 % (32-34); Mean Corpuscular Volume 89 fl (84-94); Platelet Count 139 K/mm3 (140-440); Red Blood Count 2.43 M/mm3 (3.65-5.03); Red Cell Distribution Width 19.1 % (13.2-15.2)
--- NOTE | 2021-10-16 09:48 | Progress Note ---
Assessment and Plan Assessment and plan: This is a 56-year-old male with sickle cell anemia who had a simple trip and fall at home last evening with the inability to bear weight on the left leg and significant pain and swelling. He was taken to the emergency room at [facility] where x-rays revealed a left femoral neck fracture, left hip. He was admitted and orthopedics was consulted. Basicervical Fracture LEFT femoral neck Sickle cell anemia. 10/14/2021. Patient is s/p bipolar hip replacement of left hip. Continue pain control. Physical therapy evaluation. 10/15/2021. Orthopedics reports postop physical therapy should begin today with protected weightbearing at all times and partial weightbearing with a walker; safety precautions. Gait training as well as transfers from bed to chair. DVT prophylaxis with Eliquis 2.5 mg q. twice daily, as directed ,to be continued for 5 weeks post-op. Case management for possible SNF placement. Continue pain control 10/16/2021. Continue physical therapy per protocol. Physical therapy recommends subacute rehab placement. Await case management evaluation for SNF placement. Continue pain control and supportive care for History Interval history: No new issues overnight Hospitalist Physical - Constitutional Vitals: Temp Pulse Resp BP Pulse Ox 99.5 F 104 H 18 149/77 97 10/16/21 06:27 10/16/21 06:27 10/16/21 06:27 10/16/21 06:27 10/16/21 07:34 General appearance: Present: no acute distress, well-nourished - EENT Eyes: Present: PERRL, EOM intact ENT: hearing intact, clear oral mucosa, dentition normal - Neck Neck: Present: supple, normal ROM - Respiratory Respiratory effort: normal Respiratory: bilateral: CTA - Cardiovascular Rhythm: regular Heart Sounds: Present: S1 & S2. Absent: gallop, rub - Extremities Extremities: no ischemia, No edema, Full ROM - Abdominal General gastrointestinal: soft, non-tender, non-distended, normal bowel sounds - Integumentary Integumentary: Present: clear, warm, dry - Neurologic Neurologic: CNII-XII intact, moves all extremities Results - Labs CBC & Chem 7: 10/16/21 05:19 10/15/21 05:18 Labs: Laboratory Last Values WBC 20.1 K/mm3 (4.5-11.0) H 10/16/21 05:19 RBC 2.43 M/mm3 (3.65-5.03) L 10/16/21 05:19 Hgb 7.2 gm/dl (11.8-15.2) L 10/16/21 05:19 Hct 21.6 % (35.5-45.6) L 10/16/21 05:19 MCV 89 fl (84-94) 10/16/21 05:19 MCH 30 pg (28-32) 10/16/21 05:19 MCHC 33 % (32-34) 10/16/21 05:19 RDW 19.1 % (13.2-15.2) H 10/16/21 05:19 Plt Count 139 K/mm3 (140-440) L 10/16/21 05:19 Add Manual Diff Complete 10/14/21 07:13 Total Counted 100 10/14/21 07:13 Seg Neuts % (Manual) 91.0 % (40.0-70.0) H 10/14/21 07:13 Band Neutrophils % 1.0 % 10/14/21 07:13 Lymphocytes % (Manual) 1.0 % (13.4-35.0) L 10/14/21 07:13 Reactive Lymphs % (Man) 0 % 10/14/21 07:13 Monocytes % (Manual) 7.0 % (0.0-7.3) 10/14/21 07:13 Eosinophils % (Manual) 0 % (0.0-4.3) 10/14/21 07:13 Basophils % (Manual) 0 % (0.0-1.8) 10/14/21 07:13 Metamyelocytes % 0 % 10/14/21 07:13 Myelocytes % 0 % 10/14/21 07:13 Promyelocytes % 0 % 10/14/21 07:13 Blast Cells % 0 % 10/14/21 07:13 Nucleated RBC % 9.0 % (0.0-0.9) H 10/14/21 07:13 Seg Neutrophils # Man 13.9 K/mm3 (1.8-7.7) H 10/14/21 07:13 Band Neutrophils # 0.2 K/mm3 10/14/21 07:13 Lymphocytes # (Manual) 0.2 K/mm3 (1.2-5.4) L 10/14/21 07:13 Abs React Lymphs (Man) 0.0 K/mm3 10/14/21 07:13 Monocytes # (Manual) 1.1 K/mm3 (0.0-0.8) H 10/14/21 07:13 Eosinophils # (Manual) 0.0 K/mm3 (0.0-0.4) 10/14/21 07:13 Basophils # (Manual) 0.0 K/mm3 (0.0-0.1) 10/14/21 07:13 Metamyelocytes # 0.0 K/mm3 10/14/21 07:13 Myelocytes # 0.0 K/mm3 10/14/21 07:13 Promyelocytes # 0.0 K/mm3 10/14/21 07:13 Blast Cells # 0.0 K/mm3 10/14/21 07:13 WBC Morphology Not Reportable 10/14/21 07:13 Hypersegmented Neuts Not Reportable 10/14/21 07:13 Hyposegmented Neuts Not Reportable 10/14/21 07:13 Hypogranular Neuts Not Reportable 10/14/21 07:13 Smudge Cells Not Reportable 10/14/21 07:13 Toxic Granulation Not Reportable 10/14/21 07:13 Toxic Vacuolation Not Reportable 10/14/21 07:13 Dohle Bodies Not Reportable 10/14/21 07:13 Pelger-Huet Anomaly Not Reportable 10/14/21 07:13 Osorio Rods Not Reportable 10/14/21 07:13 Platelet Estimate Consistent w auto 10/14/21 07:13 Clumped Platelets Not Reportable 10/14/21 07:13 Plt Clumps, EDTA Not Reportable 10/14/21 07:13 Large Platelets Not Reportable 10/14/21 07:13 Giant Platelets Not Reportable 10/14/21 07:13 Platelet Satelliting Not Reportable 10/14/21 07:13 Plt Morphology Comment Not Reportable 10/14/21 07:13 RBC Morphology Not Reportable 10/14/21 07:13 Dimorphic RBCs Not Reportable 10/14/21 07:13 Polychromasia 1+ 10/14/21 07:13 Hypochromasia 2+ 10/14/21 07:13 Poikilocytosis Not Reportable 10/14/21 07:13 Anisocytosis 2+ 10/14/21 07:13 Microcytosis Not Reportable 10/14/21 07:13 Macrocytosis Not Reportable 10/14/21 07:13 Spherocytes 1+ 10/14/21 07:13 Pappenheimer Bodies Not Reportable 10/14/21 07:13 Sickle Cells 1+ 10/14/21 07:13 Target Cells Few 10/14/21 07:13 Tear Drop Cells Not Reportable 10/14/21 07:13 Ovalocytes Few 10/14/21 07:13 Helmet Cells Not Reportable 10/14/21 07:13 [place] Bodies Not Reportable 10/14/21 07:13 [place] Rings Not Reportable 10/14/21 07:13 [place] Cells Few 10/14/21 07:13 Bite Cells Not Reportable 10/14/21 07:13 Crenated Cell Not Reportable 10/14/21 07:13 Elliptocytes Not Reportable 10/14/21 07:13 Acanthocytes (Spur) Few 10/14/21 07:13 Rouleaux Not Reportable 10/14/21 07:13 Hemoglobin C Crystals Not Reportable 10/14/21 07:13 Schistocytes Rare 10/14/21 07:13 Malaria parasites Not Reportable 10/14/21 07:13 [place] Bodies Not Reportable 10/14/21 07:13 Hem Pathologist Commnt No 10/14/21 07:13 PT 17.8 Sec. (12.2-14.9) H 10/15/21 05:18 INR 1.31 (0.87-1.13) H 10/15/21 05:18 APTT 46.8 Sec. (24.2-36.6) H 10/15/21 05:18 Sodium 140 mmol/L (137-145) 10/14/21 07:13 Potassium 5.5 mmol/L (3.6-5.0) H 10/14/21 07:13 Chloride 112.4 mmol/L (98-107) H 10/14/21 07:13 Carbon Dioxide 17 mmol/L (22-30) L 10/14/21 07:13 Anion Gap 16 mmol/L 10/14/21 07:13 BUN 27 mg/dL (9-20) H 10/14/21 07:13 Creatinine 1.8 mg/dL (0.8-1.3) H 10/15/21 05:18 Estimated GFR 47 ml/min 10/15/21 05:18 BUN/Creatinine Ratio 23 % 10/14/21 07:13 Glucose 117 mg/dL (75-100) H 10/14/21 07:13 Calcium 8.0 mg/dL (8.4-10.2) L 10/14/21 07:13 Total Bilirubin 5.20 mg/dL (0.1-1.2) H 10/13/21 02:25 AST 56 units/L (5-40) H 10/13/21 02:25 ALT 18 units/L (7-56) 10/13/21 02:25 Alkaline Phosphatase 111 units/L (35-129) 10/13/21 02:25 Total Protein 6.3 g/dL (6.3-8.2) 10/13/21 02:25 Albumin 3.9 g/dL (3.9-5) 10/13/21 02:25 Albumin/Globulin Ratio 1.6 % 10/13/21 02:25 Blood Type B POSITIVE 10/13/21 02:25 Antibody Screen Negative 10/13/21 02:25 Crossmatch See Detail 10/13/21 02:25 German/IV: Voiding Method Urinal Active Medications - Current Medications Current Medications: Generic Name Dose Route Start Last Admin Trade Name Freq PRN Reason Stop Dose Admin Acetaminophen 650 mg 10/13/21 05:40 10/14/21 23:39 Acetaminophen 325 Mg Tab PO 650 mg Q4H PRN Administration Pain MILD(1-3)/Fever >100.5/CHAUDHARI Apixaban 2.5 mg 10/14/21 22:00 10/15/21 21:42 Apixaban 2.5 Mg Tab PO 2.5 mg Q12HR BRITTANY Administration Protocol Cefazolin Sodium 2 gm/ Sodium 100 mls @ 200 mls/hr 10/14/21 16:45 10/16/21 00:43 Chloride IV 10/16/21 16:44 200 mls/hr Q8H BRITTANY Administration Protocol Magnesium Hydroxide 30 ml 10/13/21 05:40 Magnesium Hydroxide (Mom) Oral Liqd Udc PO Q4H PRN Constipation Morphine Sulfate 2 mg 10/13/21 05:40 10/16/21 01:20 Morphine 2 Mg/1 Ml Inj IV 2 mg Q4H PRN Administration Pain, Moderate (4-6) Morphine Sulfate 4 mg 10/13/21 05:40 10/14/21 19:30 Morphine 4 Mg/1 Ml Inj IV 4 mg Q4H PRN Administration Pain , Severe (7-10) Ondansetron HCl 4 mg 10/13/21 05:40 Ondansetron 4 Mg/2 Ml Inj IV Q8H PRN Nausea And Vomiting Sodium Chloride 10 ml 10/13/21 10:00 10/15/21 21:43 Sodium Chloride 0.9% 10 Ml Flush Syringe IV 10 ml BID BRITTANY Administration Sodium Chloride 10 ml 10/13/21 05:40 Sodium Chloride 0.9% 10 Ml Flush Syringe IV PRN PRN LINE FLUSH Nutrition/Malnutrition Assess - Dietary Evaluation Nutrition/Malnutrition Findings: Nutrition Notes Start: 10/13/21 14:23 Freq: Status: Active Protocol: Document 10/13/21 14:23 JOSE L (Rec: 10/13/21 14:59 JOSE L [id number]) Nutrition Notes Need for Assessment generated from: MD Order Initial or Follow up Brief Note Other Pertinent Diagnosis L-Hip Closed Fracture s/p Fall , Sickle Cell Anemia. Current Diet [place] until midnight on 23:59. NPO (from 10/14 00: 01). Height 5 ft 6 in Weight 53 kg [place] Body Weight (kg) 64.54 BMI 18.8 Intake Prior to Admission Good Weight change and time frame Pt denies having loss body weight [employer]. Weight Status Appropriate Subjective/Other Information RD consult for dietary supplementation assessment. Pt can be fed now, but will be NPO after midnight, there is no specified diet order. No reports available on Pt's PO intake at the time, will assess at F/U. Pt presents a L-Hip closed fracture, according History & Physical notes. Pt is on Nasal Cannula, O2 saturation @ 96%, according to Physical Assessment History notes. Procedure: Bipolar Hemiarthroplasty on L-Hip, planned for 10/14, according to History & Physical notes. Dietary supplementation is not required at the time, but will be assessed after PO intake of meals is resumed and assessed. Percent of energy/protein needs met: [place] until midnight on 23:59. NPO (from 10/14 00: 01). Is patient on ventilator? No Is Patient Ambulatory and/or Out of Bed No REE-([facility]-confined to bed) 1568.040 Calculation Used for Recommendations [facility] Additional Notes Protein: 1.5-2 g/Kg IBW; 98- 130 g/day. Fluids: 1 ml/Kcal, or as per MD. Nutrition Intervention Change Diet Order: When pertinent, resume Regular Diet, as tolerated. Follow-Up By: 10/20/21 Additional Comments When pertinent, start monitoring food tolerance, %PO intake of meals, and BM.
[2021-10-16] MEDS: APIXABAN 2.5 MG TAB PO SCH ×2 (10:53→21:30)
[2021-10-16] MEDS: ACETAMINOPHEN 325 MG TAB PO PRN (12:25)
[2021-10-17 06:49] LABS: Calcium 7.9 mg/dL (8.4-10.2)
[2021-10-17 06:53] LABS: Basophils % (Auto) 0.2 % (0.0-1.8); Eosinophils % (Auto) 0.3 % (0.0-4.3); Hemoglobin 6.5 gm/dl (11.8-15.2); Lymphocytes # (Auto) 0.3 K/mm3 (1.2-5.4); Lymphocytes % (Auto) 1.6 % (13.4-35.0); Mean Corpuscular HGB Conc 34 % (32-34); Mean Corpuscular Volume 88 fl (84-94); Monocytes % (Auto) 12.5 % (0.0-7.3); Platelet Count 125 K/mm3 (140-440); Red Blood Count 2.16 M/mm3 (3.65-5.03); Red Cell Distribution Width 18.2 % (13.2-15.2)
[2021-10-17] MEDS ORDERED: SODIUM CHLORIDE 0.9% 500 ML 500 ML IV NR (09:00)
--- NOTE | 2021-10-17 10:53 | Progress Note ---
Assessment and Plan Assessment and plan: This is a 56-year-old male with sickle cell anemia who had a simple trip and fall at home last evening with the inability to bear weight on the left leg and significant pain and swelling. He was taken to the emergency room at [facility] where x-rays revealed a left femoral neck fracture, left hip. He was admitted and orthopedics was consulted. Basicervical Fracture LEFT femoral neck Sickle cell anemia. 10/14/2021. Patient is s/p bipolar hip replacement of left hip. Continue pain control. Physical therapy evaluation. 10/15/2021. Orthopedics reports postop physical therapy should begin today with protected weightbearing at all times and partial weightbearing with a walker; safety precautions. Gait training as well as transfers from bed to chair. DVT prophylaxis with Eliquis 2.5 mg q. twice daily, as directed ,to be continued for 5 weeks post-op. Case management for possible SNF placement. Continue pain control 10/16/2021. Continue physical therapy per protocol. Physical therapy recommends subacute rehab placement. Await case management evaluation for SNF placement. Continue pain control and supportive care. 10/17/2021. Patient with anemia this morning hemoglobin 6.5. Patient with recent surgery and underlying sickle cell anemia. We will transfuse 1 unit PRBCs. Check retake count. Patient currently refusing subacute rehab and would like to go home. I will discuss with physical therapy and case management discharge planning-- Home versus [facility] History Interval history: No new issues overnight Hospitalist Physical - Constitutional Vitals: Temp Pulse Resp BP Pulse Ox 98.9 F 101 H 18 136/76 93 10/17/21 04:32 10/17/21 04:32 10/17/21 04:32 10/17/21 04:32 10/17/21 04:32 General appearance: Present: no acute distress, well-nourished - EENT Eyes: Present: PERRL, EOM intact ENT: hearing intact, clear oral mucosa, dentition normal - Neck Neck: Present: supple, normal ROM - Respiratory Respiratory effort: normal Respiratory: bilateral: CTA - Cardiovascular Rhythm: regular Heart Sounds: Present: S1 & S2. Absent: gallop, rub - Extremities Extremities: no ischemia, No edema, Full ROM - Abdominal General gastrointestinal: soft, non-tender, non-distended, normal bowel sounds - Integumentary Integumentary: Present: clear, warm, dry - Neurologic Neurologic: CNII-XII intact, moves all extremities Results - Labs CBC & Chem 7: 10/17/21 05:50 10/17/21 05:50 Labs: Laboratory Last Values WBC 15.8 K/mm3 (4.5-11.0) H 10/17/21 05:50 RBC 2.16 M/mm3 (3.65-5.03) L 10/17/21 05:50 Hgb 6.5 gm/dl (11.8-15.2) L 10/17/21 05:50 Hct 19.0 % (35.5-45.6) L* 10/17/21 05:50 MCV 88 fl (84-94) 10/17/21 05:50 MCH 30 pg (28-32) 10/17/21 05:50 MCHC 34 % (32-34) 10/17/21 05:50 RDW 18.2 % (13.2-15.2) H 10/17/21 05:50 Plt Count 125 K/mm3 (140-440) L 10/17/21 05:50 Lymph % (Auto) 1.6 % (13.4-35.0) L 10/17/21 05:50 [place] % (Auto) 12.5 % (0.0-7.3) H 10/17/21 05:50 Eos % (Auto) 0.3 % (0.0-4.3) 10/17/21 05:50 Baso % (Auto) 0.2 % (0.0-1.8) 10/17/21 05:50 Lymph # (Auto) 0.3 K/mm3 (1.2-5.4) L 10/17/21 05:50 [place] # (Auto) 2.0 K/mm3 (0.0-0.8) H 10/17/21 05:50 Eos # (Auto) 0.0 K/mm3 (0.0-0.4) 10/17/21 05:50 Baso # (Auto) 0.0 K/mm3 (0.0-0.1) 10/17/21 05:50 Add Manual Diff Complete 10/14/21 07:13 Total Counted 100 10/14/21 07:13 Seg Neutrophils % 85.4 % (40.0-70.0) H 10/17/21 05:50 Seg Neuts % (Manual) 91.0 % (40.0-70.0) H 10/14/21 07:13 Band Neutrophils % 1.0 % 10/14/21 07:13 Lymphocytes % (Manual) 1.0 % (13.4-35.0) L 10/14/21 07:13 Reactive Lymphs % (Man) 0 % 10/14/21 07:13 Monocytes % (Manual) 7.0 % (0.0-7.3) 10/14/21 07:13 Eosinophils % (Manual) 0 % (0.0-4.3) 10/14/21 07:13 Basophils % (Manual) 0 % (0.0-1.8) 10/14/21 07:13 Metamyelocytes % 0 % 10/14/21 07:13 Myelocytes % 0 % 10/14/21 07:13 Promyelocytes % 0 % 10/14/21 07:13 Blast Cells % 0 % 10/14/21 07:13 Nucleated RBC % 9.0 % (0.0-0.9) H 10/14/21 07:13 Seg Neutrophils # 13.5 K/mm3 (1.8-7.7) H 10/17/21 05:50 Seg Neutrophils # Man 13.9 K/mm3 (1.8-7.7) H 10/14/21 07:13 Band Neutrophils # 0.2 K/mm3 10/14/21 07:13 Lymphocytes # (Manual) 0.2 K/mm3 (1.2-5.4) L 10/14/21 07:13 Abs React Lymphs (Man) 0.0 K/mm3 10/14/21 07:13 Monocytes # (Manual) 1.1 K/mm3 (0.0-0.8) H 10/14/21 07:13 Eosinophils # (Manual) 0.0 K/mm3 (0.0-0.4) 10/14/21 07:13 Basophils # (Manual) 0.0 K/mm3 (0.0-0.1) 10/14/21 07:13 Metamyelocytes # 0.0 K/mm3 10/14/21 07:13 Myelocytes # 0.0 K/mm3 10/14/21 07:13 Promyelocytes # 0.0 K/mm3 10/14/21 07:13 Blast Cells # 0.0 K/mm3 10/14/21 07:13 WBC Morphology Not Reportable 10/14/21 07:13 Hypersegmented Neuts Not Reportable 10/14/21 07:13 Hyposegmented Neuts Not Reportable 10/14/21 07:13 Hypogranular Neuts Not Reportable 10/14/21 07:13 Smudge Cells Not Reportable 10/14/21 07:13 Toxic Granulation Not Reportable 10/14/21 07:13 Toxic Vacuolation Not Reportable 10/14/21 07:13 Dohle Bodies Not Reportable 10/14/21 07:13 Pelger-Huet Anomaly Not Reportable 10/14/21 07:13 Osorio Rods Not Reportable 10/14/21 07:13 Platelet Estimate Consistent w auto 10/14/21 07:13 Clumped Platelets Not Reportable 10/14/21 07:13 Plt Clumps, EDTA Not Reportable 10/14/21 07:13 Large Platelets Not Reportable 10/14/21 07:13 Giant Platelets Not Reportable 10/14/21 07:13 Platelet Satelliting Not Reportable 10/14/21 07:13 Plt Morphology Comment Not Reportable 10/14/21 07:13 RBC Morphology Not Reportable 10/14/21 07:13 Dimorphic RBCs Not Reportable 10/14/21 07:13 Polychromasia 1+ 10/14/21 07:13 Hypochromasia 2+ 10/14/21 07:13 Poikilocytosis Not Reportable 10/14/21 07:13 Anisocytosis 2+ 10/14/21 07:13 Microcytosis Not Reportable 10/14/21 07:13 Macrocytosis Not Reportable 10/14/21 07:13 Spherocytes 1+ 10/14/21 07:13 Pappenheimer Bodies Not Reportable 10/14/21 07:13 Sickle Cells 1+ 10/14/21 07:13 Target Cells Few 10/14/21 07:13 Tear Drop Cells Not Reportable 10/14/21 07:13 Ovalocytes Few 10/14/21 07:13 Helmet Cells Not Reportable 10/14/21 07:13 [place] Bodies Not Reportable 10/14/21 07:13 [place] Rings Not Reportable 10/14/21 07:13 [place] Cells Few 10/14/21 07:13 Bite Cells Not Reportable 10/14/21 07:13 Crenated Cell Not Reportable 10/14/21 07:13 Elliptocytes Not Reportable 10/14/21 07:13 Acanthocytes (Spur) Few 10/14/21 07:13 Rouleaux Not Reportable 10/14/21 07:13 Hemoglobin C Crystals Not Reportable 10/14/21 07:13 Schistocytes Rare 10/14/21 07:13 Malaria parasites Not Reportable 10/14/21 07:13 [place] Bodies Not Reportable 10/14/21 07:13 Hem Pathologist Commnt No 10/14/21 07:13 PT 17.8 Sec. (12.2-14.9) H 10/15/21 05:18 INR 1.31 (0.87-1.13) H 10/15/21 05:18 APTT 46.8 Sec. (24.2-36.6) H 10/15/21 05:18 Sodium 134 mmol/L (137-145) L 10/17/21 05:50 Potassium 5.1 mmol/L (3.6-5.0) H 10/17/21 05:50 Chloride 105.2 mmol/L (98-107) 10/17/21 05:50 Carbon Dioxide 16 mmol/L (22-30) L 10/17/21 05:50 Anion Gap 18 mmol/L 10/17/21 05:50 BUN 54 mg/dL (9-20) H 10/17/21 05:50 Creatinine 1.7 mg/dL (0.8-1.3) H 10/17/21 05:50 Estimated GFR 51 ml/min 10/17/21 05:50 BUN/Creatinine Ratio 32 % 10/17/21 05:50 Glucose 101 mg/dL (75-100) H 10/17/21 05:50 Calcium 7.9 mg/dL (8.4-10.2) L 10/17/21 05:50 Total Bilirubin 5.20 mg/dL (0.1-1.2) H 10/13/21 02:25 AST 56 units/L (5-40) H 10/13/21 02:25 ALT 18 units/L (7-56) 10/13/21 02:25 Alkaline Phosphatase 111 units/L (35-129) 10/13/21 02:25 Total Protein 6.3 g/dL (6.3-8.2) 10/13/21 02:25 Albumin 3.9 g/dL (3.9-5) 10/13/21 02:25 Albumin/Globulin Ratio 1.6 % 10/13/21 02:25 Blood Type B POSITIVE 10/17/21 08:12 Antibody Screen Negative 10/17/21 08:12 Crossmatch See Detail 10/17/21 08:12 German/IV: Voiding Method Urinal Active Medications - Current Medications Current Medications: Generic Name Dose Route Start Last Admin Trade Name Freq PRN Reason Stop Dose Admin Acetaminophen 650 mg 10/13/21 05:40 10/16/21 12:25 Acetaminophen 325 Mg Tab PO 650 mg Q4H PRN Administration Pain MILD(1-3)/Fever >100.5/CHAUDHARI Apixaban 2.5 mg 10/14/21 22:00 10/16/21 21:30 Apixaban 2.5 Mg Tab PO 2.5 mg Q12HR BRITTANY Administration Protocol Sodium Chloride 500 mls @ 0 mls/hr 10/17/21 09:00 Nacl 0.9% 500 Ml IV 10/18/21 08:59 ONCE NR As Directed Magnesium Hydroxide 30 ml 10/13/21 05:40 Magnesium Hydroxide (Mom) Oral Liqd Udc PO Q4H PRN Constipation Morphine Sulfate 2 mg 10/13/21 05:40 10/16/21 11:09 Morphine 2 Mg/1 Ml Inj IV 2 mg Q4H PRN Administration Pain, Moderate (4-6) Morphine Sulfate 4 mg 10/13/21 05:40 10/14/21 19:30 Morphine 4 Mg/1 Ml Inj IV 4 mg Q4H PRN Administration Pain , Severe (7-10) Ondansetron HCl 4 mg 10/13/21 05:40 Ondansetron 4 Mg/2 Ml Inj IV Q8H PRN Nausea And Vomiting Sodium Chloride 10 ml 10/13/21 10:00 10/16/21 21:30 Sodium Chloride 0.9% 10 Ml Flush Syringe IV 10 ml BID BRITTANY Administration Sodium Chloride 10 ml 10/13/21 05:40 Sodium Chloride 0.9% 10 Ml Flush Syringe IV PRN PRN LINE FLUSH Nutrition/Malnutrition Assess - Dietary Evaluation Nutrition/Malnutrition Findings: Nutrition Notes Start: 10/13/21 14:23 Freq: Status: Active Protocol: Document 10/13/21 14:23 JOSE L (Rec: 10/13/21 14:59 JOSE L [id number]) Nutrition Notes Need for Assessment generated from: MD Order Initial or Follow up Brief Note Other Pertinent Diagnosis L-Hip Closed Fracture s/p Fall , Sickle Cell Anemia. Current Diet [place] until midnight on 23:59. NPO (from 10/14 00: 01). Height 5 ft 6 in Weight 53 kg [place] Body Weight (kg) 64.54 BMI 18.8 Intake Prior to Admission Good Weight change and time frame Pt denies having loss body weight [employer]. Weight Status Appropriate Subjective/Other Information RD consult for dietary supplementation assessment. Pt can be fed now, but will be NPO after midnight, there is no specified diet order. No reports available on Pt's PO intake at the time, will assess at F/U. Pt presents a L-Hip closed fracture, according History & Physical notes. Pt is on Nasal Cannula, O2 saturation @ 96%, according to Physical Assessment History notes. Procedure: Bipolar Hemiarthroplasty on L-Hip, planned for 10/14, according to History & Physical notes. Dietary supplementation is not required at the time, but will be assessed after PO intake of meals is resumed and assessed. Percent of energy/protein needs met: [place] until midnight on 23:59. NPO (from 10/14 00: 01). Is patient on ventilator? No Is Patient Ambulatory and/or Out of Bed No REE-([place]-confined to bed) 1568.040 Calculation Used for Recommendations [place] Additional Notes Protein: 1.5-2 g/Kg IBW; 98- 130 g/day. Fluids: 1 ml/Kcal, or as per MD. Nutrition Intervention Change Diet Order: When pertinent, resume Regular Diet, as tolerated. Follow-Up By: 10/20/21 Additional Comments When pertinent, start monitoring food tolerance, %PO intake of meals, and BM.
[2021-10-17] MEDS: APIXABAN 2.5 MG TAB PO SCH ×2 (11:54→22:55)
[2021-10-17] MEDS: MORPHINE 4 MG/1 ML INJ IV PRN (11:54)
[2021-10-17] MEDS: ACETAMINOPHEN 325 MG TAB PO PRN (17:44)
[2021-10-18] MEDS: MORPHINE 4 MG/1 ML INJ IV PRN ×3 (02:10→14:15)
[2021-10-18 05:10] LABS: Basophils # (Auto) 0.1 K/mm3 (0.0-0.1); Basophils % (Auto) 0.6 % (0.0-1.8); Eosinophils # (Auto) 0.1 K/mm3 (0.0-0.4); Eosinophils % (Auto) 0.6 % (0.0-4.3); Hematocrit 21.2 % (35.5-45.6); Lymphocytes # (Auto) 0.5 K/mm3 (1.2-5.4); Lymphocytes % (Auto) 3.5 % (13.4-35.0); Mean Corpuscular HGB Conc 33 % (32-34); Mean Corpuscular Volume 88 fl (84-94); Monocytes # (Auto) 1.9 K/mm3 (0.0-0.8); Monocytes % (Auto) 13.8 % (0.0-7.3); Platelet Count 153 K/mm3 (140-440); Red Cell Distribution Width 17.8 % (13.2-15.2)
[2021-10-18 05:25] LABS: BUN/Creatinine Ratio 35; Blood Urea Nitrogen 45 mg/dL (9-20); Calcium 8.4 mg/dL (8.4-10.2); Hemolysis Index 14
[2021-10-18] MEDS: APIXABAN 2.5 MG TAB PO SCH (10:07)
--- NOTE | 2021-10-18 17:29 | Discharge Summary ---
Providers - Providers Date of Admission: 10/13/21 05:41 Attending physician: MAYNOR PAYNE MD 10/13/21 05:40 Consult to Physician [CONS] Routine Comment: Consulting Provider: JEFFREY FAITH Physician Instructions: Reason For Exam: LEFT HIP fRACTURE 10/14/21 16:40 Physical Therapy Evaluation and Treat [CONS] Urgent Comment: Reason For Exam: Post-op hip surgery Mode of Transport?: Walker Weight bearing status?: Partial wt bearing Assistive devices?: Yes If so list: Walker 10/15/21 12:01 Physical Therapy Evaluation and Treat [CONS] Routine Comment: Reason For Exam: Post-op hip surgery 10/18/21 15:43 Physical Therapy Evaluation and Treat [CONS] Stat Comment: Eval and Treat Reason For Exam: Physical Therapy Primary care physician: IRAM ORELLANA MD Hospitalization Condition: Stable Disposition: 06 HOME HEALTH CARE SERVICE Exam - Constitutional Vitals: Temp Pulse Resp BP Pulse Ox 98.4 F 112 H 18 131/63 99 10/18/21 11:21 10/18/21 11:21 10/18/21 11:21 10/18/21 11:21 10/18/21 11:21 General appearance: Present: no acute distress - EENT Eyes: Present: PERRL ENT: hearing intact - Neck Neck: Present: supple - Respiratory Respiratory effort: normal Respiratory: bilateral: CTA - Cardiovascular Rhythm: regular - Extremities Extremities: No edema Extremity abnormal: other (Postop swelling/induration around the left hip area but no erythema or drainage noted) - Abdominal General gastrointestinal: Present: soft, non-tender - Psychiatric Psychiatric: appropriate mood/affect - Neurologic Neurologic: no focal deficits Plan Activity: other (As directed by physical therapy and orthopedic surgeon) Weight Bearing Status: Weight Bear as Tolerated Diet: regular Wound: per your surgeon's advice Additional Instructions: Must have physical therapy after hip surgery, contact your [place] physician to have this arranged. Watch for skin bruising or bleeding while taking blood thinner medicine Xarelto. If you notice skin bruising or bleeding, hold blood thinner medicine and come to ER for evaluation. Have your blood count checked in a week by your family doctor. Follow up with: IRAM ORELLANA MD [Primary Care Provider] - 7 Days JEFFREY FAITH MD [Staff Physician] - 14 Days Prescriptions: Rivaroxaban [Xarelto] 10 mg PO QDAY #35 tab
[2021-10-18] MEDS ORDERED: oxyCODONE /ACETAMINOPHEN 5-325MG TAB PO PRN (18:42)
--- NOTE | 2021-10-18 19:32 | Progress Note ---
Assessment and Plan Assessment and plan: This is a 56-year-old male with sickle cell anemia who had a simple trip and fall at home last evening with the inability to bear weight on the left leg and significant pain and swelling. He was taken to the emergency room at [facility] where x-rays revealed a left femoral neck fracture, left hip. He was admitted and orthopedics was consulted. Basicervical Fracture LEFT femoral neck Sickle cell anemia. 10/14/2021. Patient is s/p bipolar hip replacement of left hip. Continue pain control. Physical therapy evaluation. 10/15/2021. Orthopedics reports postop physical therapy should begin today with protected weightbearing at all times and partial weightbearing with a walker; safety precautions. Gait training as well as transfers from bed to chair. DVT prophylaxis with Eliquis 2.5 mg q. twice daily, as directed ,to be continued for 5 weeks post-op. Case management for possible SNF placement. Continue pain control 10/16/2021. Continue physical therapy per protocol. Physical therapy recommends subacute rehab placement. Await case management evaluation for SNF placement. Continue pain control and supportive care. 10/17/2021. Patient with anemia this morning hemoglobin 6.5. Patient with recent surgery and underlying sickle cell anemia. We will transfuse 1 unit PRBCs. Check retake count. Patient currently refusing subacute rehab and would like to go home. I will discuss with physical therapy and case management discharge planning-- Home versus [facility] History Interval history: Patient is able to walk with walker/PT. hemoglobin is 7 which is his baseline according to patient. He received morphine twice during the daytime for pain control. He is alert and oriented. He is to go home with home PT/OT today, discharge held pending provision of a walker. Ortho cleared for discharge on anticoagulation x5 weeks, home PT/OT and Ortho follow-up in 2 weeks. Hospitalist Physical - Constitutional Vitals: Temp Pulse Resp BP Pulse Ox 98.9 F 108 H 20 167/75 99 10/18/21 15:43 10/18/21 15:43 10/18/21 15:43 10/18/21 15:43 10/18/21 15:43 General appearance: Present: no acute distress, well-nourished - EENT Eyes: Present: PERRL ENT: hearing intact - Neck Neck: Present: supple - Respiratory Respiratory effort: normal Respiratory: bilateral: CTA - Cardiovascular Rhythm: regular - Extremities Extremities: abnormal (Appropriate postfracture/postsurgical swelling/induration.) - Abdominal General gastrointestinal: soft, non-tender, non-distended - Psychiatric Psychiatric: appropriate mood/affect - Neurologic Neurologic: no focal deficits Results - Labs CBC & Chem 7: 10/18/21 20:31 10/18/21 20:31 Labs: Laboratory Last Values WBC 13.9 K/mm3 (4.5-11.0) H 10/18/21 04:20 RBC 2.40 M/mm3 (3.65-5.03) L 10/18/21 04:20 Hgb 7.0 gm/dl (11.8-15.2) L 10/18/21 04:20 Hct 21.2 % (35.5-45.6) L 10/18/21 04:20 MCV 88 fl (84-94) 10/18/21 04:20 MCH 29 pg (28-32) 10/18/21 04:20 MCHC 33 % (32-34) 10/18/21 04:20 RDW 17.8 % (13.2-15.2) H 10/18/21 04:20 Plt Count 153 K/mm3 (140-440) 10/18/21 04:20 Lymph % (Auto) 3.5 % (13.4-35.0) L 10/18/21 04:20 [place] % (Auto) 13.8 % (0.0-7.3) H 10/18/21 04:20 Eos % (Auto) 0.6 % (0.0-4.3) 10/18/21 04:20 Baso % (Auto) 0.6 % (0.0-1.8) 10/18/21 04:20 Lymph # (Auto) 0.5 K/mm3 (1.2-5.4) L 10/18/21 04:20 [place]kin # (Auto) 1.9 K/mm3 (0.0-0.8) H 10/18/21 04:20 Eos # (Auto) 0.1 K/mm3 (0.0-0.4) 10/18/21 04:20 Baso # (Auto) 0.1 K/mm3 (0.0-0.1) 10/18/21 04:20 Add Manual Diff Complete 10/14/21 07:13 Total Counted 100 10/14/21 07:13 Seg Neutrophils % 81.5 % (40.0-70.0) H 10/18/21 04:20 Seg Neuts % (Manual) 91.0 % (40.0-70.0) H 10/14/21 07:13 Band Neutrophils % 1.0 % 10/14/21 07:13 Lymphocytes % (Manual) 1.0 % (13.4-35.0) L 10/14/21 07:13 Reactive Lymphs % (Man) 0 % 10/14/21 07:13 Monocytes % (Manual) 7.0 % (0.0-7.3) 10/14/21 07:13 Eosinophils % (Manual) 0 % (0.0-4.3) 10/14/21 07:13 Basophils % (Manual) 0 % (0.0-1.8) 10/14/21 07:13 Metamyelocytes % 0 % 10/14/21 07:13 Myelocytes % 0 % 10/14/21 07:13 Promyelocytes % 0 % 10/14/21 07:13 Blast Cells % 0 % 10/14/21 07:13 Nucleated RBC % 9.0 % (0.0-0.9) H 10/14/21 07:13 Seg Neutrophils # 11.4 K/mm3 (1.8-7.7) H 10/18/21 04:20 Seg Neutrophils # Man 13.9 K/mm3 (1.8-7.7) H 10/14/21 07:13 Band Neutrophils # 0.2 K/mm3 10/14/21 07:13 Lymphocytes # (Manual) 0.2 K/mm3 (1.2-5.4) L 10/14/21 07:13 Abs React Lymphs (Man) 0.0 K/mm3 10/14/21 07:13 Monocytes # (Manual) 1.1 K/mm3 (0.0-0.8) H 10/14/21 07:13 Eosinophils # (Manual) 0.0 K/mm3 (0.0-0.4) 10/14/21 07:13 Basophils # (Manual) 0.0 K/mm3 (0.0-0.1) 10/14/21 07:13 Metamyelocytes # 0.0 K/mm3 10/14/21 07:13 Myelocytes # 0.0 K/mm3 10/14/21 07:13 Promyelocytes # 0.0 K/mm3 10/14/21 07:13 Blast Cells # 0.0 K/mm3 10/14/21 07:13 WBC Morphology Not Reportable 10/14/21 07:13 Hypersegmented Neuts Not Reportable 10/14/21 07:13 Hyposegmented Neuts Not Reportable 10/14/21 07:13 Hypogranular Neuts Not Reportable 10/14/21 07:13 Smudge Cells Not Reportable 10/14/21 07:13 Toxic Granulation Not Reportable 10/14/21 07:13 Toxic Vacuolation Not Reportable 10/14/21 07:13 Dohle Bodies Not Reportable 10/14/21 07:13 Pelger-Huet Anomaly Not Reportable 10/14/21 07:13 Osorio Rods Not Reportable 10/14/21 07:13 Platelet Estimate Consistent w auto 10/14/21 07:13 Clumped Platelets Not Reportable 10/14/21 07:13 Plt Clumps, EDTA Not Reportable 10/14/21 07:13 Large Platelets Not Reportable 10/14/21 07:13 Giant Platelets Not Reportable 10/14/21 07:13 Platelet Satelliting Not Reportable 10/14/21 07:13 Plt Morphology Comment Not Reportable 10/14/21 07:13 RBC Morphology Not Reportable 10/14/21 07:13 Dimorphic RBCs Not Reportable 10/14/21 07:13 Polychromasia 1+ 10/14/21 07:13 Hypochromasia 2+ 10/14/21 07:13 Poikilocytosis Not Reportable 10/14/21 07:13 Anisocytosis 2+ 10/14/21 07:13 Microcytosis Not Reportable 10/14/21 07:13 Macrocytosis Not Reportable 10/14/21 07:13 Spherocytes 1+ 10/14/21 07:13 Pappenheimer Bodies Not Reportable 10/14/21 07:13 Sickle Cells 1+ 10/14/21 07:13 Target Cells Few 10/14/21 07:13 Tear Drop Cells Not Reportable 10/14/21 07:13 Ovalocytes Few 10/14/21 07:13 Helmet Cells Not Reportable 10/14/21 07:13 Harmon-Killen Bodies Not Reportable 10/14/21 07:13 [place] Rings Not Reportable 10/14/21 07:13 Alexa Cells Few 10/14/21 07:13 Bite Cells Not Reportable 10/14/21 07:13 Crenated Cell Not Reportable 10/14/21 07:13 Elliptocytes Not Reportable 10/14/21 07:13 Acanthocytes (Spur) Few 10/14/21 07:13 Rouleaux Not Reportable 10/14/21 07:13 Hemoglobin C Crystals Not Reportable 10/14/21 07:13 Schistocytes Rare 10/14/21 07:13 Malaria parasites Not Reportable 10/14/21 07:13 Landon Bodies Not Reportable 10/14/21 07:13 Hem Pathologist Commnt No 10/14/21 07:13 PT 17.8 Sec. (12.2-14.9) H 10/15/21 05:18 INR 1.31 (0.87-1.13) H 10/15/21 05:18 APTT 46.8 Sec. (24.2-36.6) H 10/15/21 05:18 Sodium 136 mmol/L (137-145) L 10/18/21 04:20 Potassium 4.9 mmol/L (3.6-5.0) 10/18/21 04:20 Chloride 107.3 mmol/L (98-107) H 10/18/21 04:20 Carbon Dioxide 16 mmol/L (22-30) L 10/18/21 04:20 Anion Gap 18 mmol/L 10/18/21 04:20 BUN 45 mg/dL (9-20) H 10/18/21 04:20 Creatinine 1.3 mg/dL (0.8-1.3) 10/18/21 04:20 Estimated GFR > 60 ml/min 10/18/21 04:20 BUN/Creatinine Ratio 35 % 10/18/21 04:20 Glucose 104 mg/dL (75-100) H 10/18/21 04:20 Calcium 8.4 mg/dL (8.4-10.2) 10/18/21 04:20 Total Bilirubin 5.20 mg/dL (0.1-1.2) H 10/13/21 02:25 AST 56 units/L (5-40) H 10/13/21 02:25 ALT 18 units/L (7-56) 10/13/21 02:25 Alkaline Phosphatase 111 units/L (35-129) 10/13/21 02:25 Total Protein 6.3 g/dL (6.3-8.2) 10/13/21 02:25 Albumin 3.9 g/dL (3.9-5) 10/13/21 02:25 Albumin/Globulin Ratio 1.6 % 10/13/21 02:25 Blood Type B POSITIVE 10/17/21 08:12 Antibody Screen Negative 10/17/21 08:12 Crossmatch See Detail 10/17/21 08:12 German/IV: Voiding Method Urinal Active Medications - Current Medications Current Medications: Generic Name Dose Route Start Last Admin Trade Name Freq PRN Reason Stop Dose Admin Acetaminophen 650 mg 10/13/21 05:40 10/17/21 17:44 Acetaminophen 325 Mg Tab PO 650 mg Q4H PRN Administration Pain MILD(1-3)/Fever >100.5/CHAUDHARI Magnesium Hydroxide 30 ml 10/13/21 05:40 Magnesium Hydroxide (Mom) Oral Liqd Udc PO Q4H PRN Constipation Morphine Sulfate 2 mg 10/13/21 05:40 10/16/21 11:09 Morphine 2 Mg/1 Ml Inj IV 2 mg Q4H PRN Administration Pain, Moderate (4-6) Ondansetron HCl 4 mg 10/13/21 05:40 Ondansetron 4 Mg/2 Ml Inj IV Q8H PRN Nausea And Vomiting Oxycodone/Acetaminophen 1 tab 10/18/21 18:42 Oxycodone /Acetaminophen 5-325mg Tab PO Q6H PRN Pain, Moderate (4-6) Rivaroxaban 10 mg 10/18/21 19:00 Rivaroxaban 10 Mg Tab PO 10/30/21 18:59 QDAY BRITTANY Protocol Sodium Chloride 10 ml 10/13/21 10:00 10/18/21 10:07 Sodium Chloride 0.9% 10 Ml Flush Syringe IV 10 ml BID BRITTANY Administration Sodium Chloride 10 ml 10/13/21 05:40 Sodium Chloride 0.9% 10 Ml Flush Syringe IV PRN PRN LINE FLUSH Nutrition/Malnutrition Assess - Dietary Evaluation Nutrition/Malnutrition Findings: Nutrition Notes Start: 10/13/21 14:23 Freq: Status: Active Protocol: Document 10/13/21 14:23 JOSE L (Rec: 10/13/21 14:59 JOSE L [id number]) Nutrition Notes Need for Assessment generated from: MD Order Initial or Follow up Brief Note Other Pertinent Diagnosis L-Hip Closed Fracture s/p Fall , Sickle Cell Anemia. Current Diet [place] until midnight on 23:59. NPO (from 10/14 00: 01). Height 5 ft 6 in Weight 53 kg Ledbetter Body Weight (kg) 64.54 BMI 18.8 Intake Prior to Admission Good Weight change and time frame Pt denies having loss body weight [employer]. Weight Status Appropriate Subjective/Other Information RD consult for dietary supplementation assessment. Pt can be fed now, but will be NPO after midnight, there is no specified diet order. No reports available on Pt's PO intake at the time, will assess at F/U. Pt presents a L-Hip closed fracture, according History & Physical notes. Pt is on Nasal Cannula, O2 saturation @ 96%, according to Physical Assessment History notes. Procedure: Bipolar Hemiarthroplasty on L-Hip, planned for 10/14, according to History & Physical notes. Dietary supplementation is not required at the time, but will be assessed after PO intake of meals is resumed and assessed. Percent of energy/protein needs met: [place] until midnight on 23:59. NPO (from 10/14 00: 01). Is patient on ventilator? No Is Patient Ambulatory and/or Out of Bed No REE-([facility]-confined to bed) 1568.040 Calculation Used for Recommendations [facility] Additional Notes Protein: 1.5-2 g/Kg IBW; 98- 130 g/day. Fluids: 1 ml/Kcal, or as per MD. Nutrition Intervention Change Diet Order: When pertinent, resume Regular Diet, as tolerated. Follow-Up By: 10/20/21 Additional Comments When pertinent, start monitoring food tolerance, %PO intake of meals, and BM.
[2021-10-18 21:00] LABS: Hematocrit 20.8 % (35.5-45.6); Hemoglobin 6.9 gm/dl (11.8-15.2); Mean Corpuscular HGB Conc 33 % (32-34); Mean Corpuscular Volume 88 fl (84-94); Platelet Count 173 K/mm3 (140-440); Red Blood Count 2.36 M/mm3 (3.65-5.03); Red Cell Distribution Width 18.1 % (13.2-15.2)
[2021-10-18 21:11] LABS: INR 1.29 (0.87-1.13)
[2021-10-18 21:13] LABS: Partial Thromboplastin Time 44.8 Sec. (24.2-36.6)
[2021-10-18] MEDS: RIVAROXABAN 10 MG TAB PO SCH (22:37)
[2021-10-18] MEDS: MORPHINE 2 MG/1 ML INJ IV PRN (22:43)
[2021-10-19] MEDS: RIVAROXABAN 10 MG TAB PO SCH (10:34)
[2021-10-19] MEDS: MORPHINE 2 MG/1 ML INJ IV PRN (10:35)
--- NOTE | 2021-10-19 11:58 | Discharge Summary ---
Providers - Providers Date of Admission: 10/13/21 05:41 Attending physician: JESSIKA SKINNER MD 10/13/21 05:40 Consult to Physician [CONS] Routine Comment: Consulting Provider: JEFFREY FAITH Physician Instructions: Reason For Exam: LEFT HIP fRACTURE 10/14/21 16:40 Physical Therapy Evaluation and Treat [CONS] Urgent Comment: Reason For Exam: Post-op hip surgery Mode of Transport?: Walker Weight bearing status?: Partial wt bearing Assistive devices?: Yes If so list: Walker 10/15/21 12:01 Physical Therapy Evaluation and Treat [CONS] Routine Comment: Reason For Exam: Post-op hip surgery 10/18/21 15:43 Physical Therapy Evaluation and Treat [CONS] Stat Comment: Eval and Treat Reason For Exam: Physical Therapy 10/18/21 23:13 Consult to Case Management [CONS] Urgent Services Needed at Discharge: DME Equipment Notified:: Consulted Additional Physician Instructions: Patient needs a walker at the time of discharge home, status post hip surgery Primary care physician: GL[employer] OPERATOR Hospitalization Reason for admission: fracture, fall Condition: Stable Hospital course: This is a 56-year-old male with sickle cell anemia who had a simple trip and fall at home last evening with the inability to bear weight on the left leg and significant pain and swelling. He was taken to the emergency room at [facility] where x-rays revealed a left femoral neck fracture, left hip. He was admitted and orthopedics was consulted. Basicervical Fracture LEFT femoral neck Sickle cell anemia. 10/14/2021. Patient is s/p bipolar hip replacement of left hip. Continue pain control. Physical therapy evaluation. 10/15/2021. Orthopedics reports postop physical therapy should begin today with protected weightbearing at all times and partial weightbearing with a walker; safety precautions. Gait training as well as transfers from bed to chair. DVT prophylaxis with Eliquis 2.5 mg q. twice daily, as directed ,to be continued for 5 weeks post-op. Case management for possible SNF placement. Continue pain control 10/16/2021. Continue physical therapy per protocol. Physical therapy recommends subacute rehab placement. Await case management evaluation for SNF placement. Continue pain control and supportive care. 10/17/2021. Patient with anemia this morning hemoglobin 6.5. Patient with recent surgery and underlying sickle cell anemia. We will transfuse 1 unit PRBCs. Check retake count. Patient currently refusing subacute rehab and would like to go home. I will discuss with physical therapy and case management discharge planning-- Home versus [facility] 10/19/2021: Discharge home. Patient refusing subacute rehab. Will discharge home with home health PT and rolling walker. We will also discharge him with prescription for Xarelto, prednisone, hydrocodone. He was advised to follow up with his OP primary care doctor as well as orthopedic surgery merritt. Disposition: 01 HOME / SELF CARE / HOMELESS Final Discharge Diagnosis (Prints w/discharge instructions): femoral head fracture. Time spent for discharge: 35 Core Measure Documentation - Palliative Care Palliative Care/ Comfort Measures: Not Applicable - Core Measures Any of the following diagnoses?: none Exam - Physical Exam Narrative exam: General appearance: Present: no acute distress, well-nourished - EENT Eyes: Present: PERRL ENT: hearing intact - Neck Neck: Present: supple - Respiratory Respiratory effort: normal Respiratory: bilateral: CTA - Cardiovascular Rhythm: regular - Extremities Extremities: abnormal (Appropriate postfracture/postsurgical swell ing/induration.) - Abdominal General gastrointestinal: soft, non-tender, non-distended - Psychiatric Psychiatric: appropriate mood/affect - Neurologic Neurologic: no focal deficits - Constitutional Vitals: Temp Pulse Resp BP Pulse Ox 98.6 F 104 H 16 133/68 96 10/19/21 04:57 10/19/21 04:57 10/19/21 04:57 10/19/21 04:57 10/19/21 10:00 Plan Follow up with: JEFFREY FAITH MD [Staff Physician] - 14 Days PRIMARY CARE, [Primary Care Provider] - 7 Days Prescriptions: predniSONE [Deltasone] 40 mg PO QDAY 5 Days #5 tab HYDROcodone/ACETAMINOPHEN [Hydrocodone-Acetamin 2.5-325] 1 each PO TID 3 Days #9 tab Rivaroxaban [Xarelto] 10 mg PO QDAY #35 tab
[2021-10-19 13:14] VITALS: BP 158/72
== END 2021-10-19 13:33 | disposition home health service (06) | DRG 522 ==
LOC: ED 00:21 → 3A 05:41
PROVIDERS: ADMIT Internal Medicine Geriatric Medicine; ATTEND Internal Medicine
PROC: 30233N1 Transfusion of Nonautologous Red Blood Cells into Peripheral Vein, Percutaneous Approach (ICD-10-PCS; 2021-10-13)
PROC: 0SRB0JZ Replacement of Left Hip Joint with Synthetic Substitute, Open Approach (ICD-10-PCS; principal; 2021-10-14)
DX: S72.092A Other fracture of head and neck of left femur, initial encounter for closed fracture (principal); D57.1 Sickle-cell disease without crisis; W18.39XA Other fall on same level, initial encounter; Y93.89 Activity, other specified; Y92.89 Other specified places as the place of occurrence of the external cause; Y99.8 Other external cause status
CPT/HCPCS: 36415; 71045; 80048; 80053; 82565; 85007; 85014; 85018; 85025; 85027; 85610; 85730; 86850; 86900; 86901; 86920; 88304; 88305; 88311; G0378; J1815; J3490; C1776; J0690; J1170; J1200; J2250; J2270; J2704; J2710; J3010; J7030; J7040; J7120; P9016